=== PATIENT | male | born 1945 | race Caucasian/White ===

== ENCOUNTER → 2021-02-21 | Outpatient (CLI) | payer MEDICARE ==
[2021-02-21 07:50] LABS: Appearance,Urine Clear (Clear); Bilirubin,Urine Negative (Negative); Blood,Urine Negative (Negative); Color,Urine Yellow; Glucose,Urine (UA) Negative (Negative); HCT 47.5 % (39.0-53.0); HGB 15.8 gm/dL (13.0-17.5); Ketones,Urine Negative (Negative); Leukocyte Esterase,Urine Negative (Negative); MCH 33.1 pg (25.0-35.0); MCHC 33.4 g/dL (31.0-37.0); MCV 99.3 fL (80.0-100.0); Mean Platelet Volume 8.1; Nitrite,Urine Negative (Negative); Platelet Count 203 k/uL (150-450); Protein,Urine Negative (Negative); RBC 4.78 m/uL (4.30-5.90); RDW 12.3 % (11.5-15.5); Specific Gravity,Urine 1.012 (1.001-1.035); Urobilinogen,Urine <2.0 mg/dL (<2.0); WBC 5.5 k/uL (3.8-10.6)
[2021-02-21 07:54] LABS: INR 1.4 (<1.2); Partial Thromboplastin Time 26.8 sec (22.0-30.0); Prothrombin Time 13.9 sec (9.0-12.0)
[2021-02-21 07:57] LABS: ALT 16 U/L (4-49); AST 26 U/L (17-59); African American GFR (CKD) >90 (>60 ml/min/1.73 sqM); Albumin 4.1 g/dL (3.5-5.0); Alkaline Phosphatase 79 U/L (38-126); Anion Gap 6 mmol/L; Blood Urea Nitrogen 17 mg/dL (9-20); Calcium 9.4 mg/dL (8.4-10.2); Carbon Dioxide 28 mmol/L (22-30); Chloride 103 mmol/L (98-107); Glucose 112 mg/dL (74-99); Non-African American GFR(CKD) 87 (>60 ml/min/1.73 sqM); Potassium 4.6 mmol/L (3.5-5.1); Sodium 137 mmol/L (137-145); Total Bilirubin 0.8 mg/dL (0.2-1.3); Total Protein 7.1 g/dL (6.3-8.2)
== END | disposition home or self-care (01) ==
LOC: LABPAT 07:16
PROVIDERS: ATTEND Orthopaedic Surgery
DX: Z01.812 Encounter for preprocedural laboratory examination (principal)
CPT/HCPCS: 36415; 80053; 81003; 85027; 85610; 85730; 87070

== ENCOUNTER 2021-03-01 09:47 | Inpatient (IN) | payer MEDICARE ==
[2021-02-28 10:03] VITALS: BMI 31.6
[~2021-03-01 09:47] MED LIST: ACETAMINOPHEN TAB 500 MG TAB PO PRN; DEXAMETHASONE SOD PHOSPHATE 4 MG/ML 1 ML VIAL IV ONE; GABAPENTIN 300 MG CAP PO PRN; HYDROmorphone 0.5 MG/0.5 ML SYRINGE IVP PRN; MELOXICAM 7.5 MG TAB PO PRN; MIDAZOLAM 2 MG/2 ML VIAL IV PRN; ONDANSETRON 4 MG/2 ML VIAL IVP ONE; TRANEXAMIC ACID 1,000 MG in SODIUM CHLORIDE 0.9% 100 ML IVPB PRN
[2021-03-01] MEDS ORDERED: ceFAZolin 1,000 MG in SODIUM CHLORIDE 0.9% 1,000 ML IRRIGATION ONE (11:15)
[2021-03-01 11:16] LABS: Partial Thromboplastin Time 23.9 sec (22.0-30.0); Prothrombin Time 10.5 sec (9.0-12.0)
[2021-03-01] MEDS ORDERED: SODIUM CHLORIDE 0.9% IRRIG 1,000 ML BTL IRRIGATION ONE (11:19)
[2021-03-01] MEDS ORDERED: MIDAZOLAM 2 MG/2 ML VIAL ONE (11:19)
[2021-03-01] MEDS ORDERED: PHENYLEPHRINE-0.9% NACL SYG 1,000 MCG/10 ML SYRINGE ONE (11:19)
[2021-03-01] MEDS ORDERED: fentaNYL (PF) 50 MCG/ML 2 ML AMP ONE (11:19)
[2021-03-01] MEDS ORDERED: SODIUM CHLORIDE 0.9% 250 ML BAG ONE (11:19)
[2021-03-01] MEDS ORDERED: HYDROmorphone (PF) 1 MG/ML ONE (11:19)
[2021-03-01] MEDS ORDERED: TRANEXAMIC ACID 1,000 MG/10 ML VIAL ONE (11:19)
[2021-03-01] MEDS ORDERED: PROPOFOL 10 MG/ML 20 ML VIAL IV ONE (11:19)
[2021-03-01] MEDS ORDERED: SUCCINYLCHOLINE CHLORIDE 100 MG/5 ML SYR IV ONE (11:19)
[2021-03-01] MEDS ORDERED: HEPARIN SODIUM,PORCINE 10,000 UNIT/ML 1 ML VIAL ONE (11:19)
[2021-03-01] MEDS: ROPIVACAINE/EPI/CLONIDINE/KET 50 ML SYRINGE MISCELLANE PRN ×2 (11:47→12:30)
--- NOTE | 2021-03-01 12:44 | P.OP ---
Date of Procedure: 03/01/21 Preoperative Diagnosis: Severe osteoarthritis right hip Postoperative Diagnosis: Severe osteoarthritis right hip Procedure(s) Performed: Right total hip arthroplasty with a direct anterior approach Implants: [employer] Polarstem standard size 7 [employer] R3, 3 hole hemispherical acetabular shell, 58 mm [employer] Reflection 6.5 mm cancellus screw, 25 mm 2 [employer] R3, XLPE 20 acetabular liner [employer] Oxinium femoral head 36 m, -3 All components were press-fit. The articulation is Oxinium on polyethylene. Anesthesia: GETA Surgeon: Jorden Chaidez Pumper Gager Apprentice #1: Loree Coronel Estimated Blood Loss (ml): 100 Pathology: other (Femoral head) Condition: stable Disposition: PACU Indications for Procedure: After failure of conservative treatment we discussed the surgical and nonsurgical treatment options at length. Patient wishes to proceed with a total hip arthroplasty with a direct anterior approach. Complications specific to this procedure were discussed at length, including but not limited to infection, leg length discrepancy, dislocation, nerve injury, and fracture. Covid-19 was also discussed at length with the patient, and they are aware of the current policies and procedures. The patient was given the option of delaying surgery, but they elect to proceed knowing these risks. Patient is aware of all these complications and informed consent was obtained Operative Findings: The operative findings are consistent with severe osteoarthritis of the right hip Description of Procedure: Patient was seen and evaluated in the preoperative area and the consent was reviewed. The operative site was marked with a skin marker. The patient was then brought to the operating room and given preoperative antibiotics intravenously. 1 g of Tranexamic acid was also given intravenously. A general anesthetic was administered by the anesthesia department. The patient was then placed on the [place] table with the bony prominences well-padded. The hip area was then prepped with a ChloraPrep solution and draped in the usual sterile fashion. A universal timeout was then performed, which confirmed the patient's name, surgical site, ALLERGIES, and procedure being performed on the consent. Next the incision site was located at 1 cm distal and 2 cm lateral to the anterior superior iliac spine. The skin and subcutaneous tissues were sharply incised. Incision was carefully dissected down to the fascia overlying the tensor fascia janna muscle. This fascia was then incised in line with the incision. Care was taken to stay laterally in order to avoid injuring the lateral femoral cutaneous nerve. Next, using blunt finger dissection, the tensor fascia janna muscle was dissected off its investing fascia. The muscle was then carefully retracted laterally with a cobra retractor over the lateral neck of the femur. Next, the circumflex vessels were identified and cauterized using the AquaMantis device. The anterior hip capsule was then exposed. The capsule was then opened and an inverted T fashion. Cobra retractors were then placed intracapsularly. The retractors were maintained intracapsular throughout the procedure. The proximal femur was then visualized. A small amount of traction was placed on the leg. The femoral neck was then osteotomized appropriate level above the lesser trochanter. A small wedge of bone was then removed from the remaining femoral head. Next, using a corkscrew the femoral head was removed from the acetabulum. On gross visual inspection, the femoral head had complete loss of articular cartilage and multiple periarticular osteophytes. The femoral head was then measured. Attention was then turned to the acetabulum. The acetabulum was exposed and any remaining labrum was excised. Sequential reaming of the acetabulum was performed using fluoroscopic guidance until there was a good bed of bleeding cancellus bone. When the appropriate size was reached, a trial was then placed. The position and fit of the trial was checked with fluoroscopy. The trial was then removed. Then, using fluoroscopic guidance, the final implant was impacted at 20 of anteversion and 40 of abduction, and fully seated in the acetabulum. 2 screws were then placed in the acetabulum. Again fluoroscopy was used to check position of the screws. Next, the liner was then impacted, with a 20 elevated liner located in the anterior superior quadrant. Component locking was confirmed. Attention was then directed to the femur. With the aid of the [place] table, the femur was externally rotated to approximately 130, extended, and adducted under the opposite leg. A side hook was then placed under the proximal femur, and the side hook elevator was used to elevate the proximal femur while releasing the capsule. Retractors were then placed. A capsular release was performed, as well as a release of the conjoined tendon, which afforded excellent visualization of the proximal femur. Next, a box osteotome was used to lateralize the proximal femur. A orchid hand was then used to locate the femoral canal. Sequential broaching was then performed with appropriate size which afforded excellent fixation in the proximal femur. A trial was then placed with appropriate head and neck, and the hip was gently reduced with the aid of the [place] table. Fluoroscopy was then used to check position of the components, as well as to ensure equal leg lengths. The hip was then gently dislocated and the trials were then removed. Final implants were then impacted and the hip was again reduced. Final fluoroscopic x-rays confirmed that the components were in anatomic position, as well as equal leg lengths. The hip was also taken through range of motion, and found to be stable. The hip was then copiously irrigated with antibiotic solution with pulsatile lavage. The hip was then irrigated with Irrisept solution. The soft tissues were then injected with a ropivacaine solution, which consisted of 246.25 mg of ropivacaine, 0.5 mg of epinephrine, 30 mg of Toradol, 80 g of clonidine, and 48.45 mL of sterile water, for a total of 100 mL of fluid injected. A second dose of 1 g of Tranexamic acid was also given intravenously. Any blood collected by Cell Saver was then returned to the patient at this time. The fascia was then closed with 2-0 strata fix suture. The subcutaneous tissue was closed with 3-0 Vicryl. The subcuticular tissue was closed with 3-0 strata fix suture. The skin was then closed with Exofin skin glue. After the glue and dried, and Optifoam silver impregnated dressing was applied. The patient was then transferred to the recovery room in stable condition. The special event assistant [place] was required due to the complexity of surgery, and the need for skilled assurance assistant for positioning, draping, exposure, retraction, and closure of the wound.
[2021-03-01] MEDS ORDERED: LACTATED RINGERS 1,000 ML IV ONE (12:46)
[2021-03-01] MEDS ORDERED: MAGNESIUM HYDROXIDE 2,400 MG/10 ML CUP PO PRN (13:09)
[2021-03-01] MEDS ORDERED: HYDROmorphone 0.5 MG/0.5 ML SYRINGE IVP PRN (13:09)
[2021-03-01] MEDS ORDERED: NALOXONE 0.4 MG/ML 1 ML VIAL IV PRN (13:09)
[2021-03-01] MEDS ORDERED: ONDANSETRON 4 MG/2 ML VIAL IVP PRN (13:09)
[2021-03-01] MEDS ORDERED: HYDROmorphone 0.2 MG/1 ML SYRINGE IVP PRN (13:09)
--- NOTE | 2021-03-01 13:10 | XR ---
EXAMINATION TYPE: XR Hip Limited RT, FL guidance operating room DATE OF EXAM: 03/01/2021 Comparison: None Clinical History: 75-year-old male Rt Hip-Ant Findings: Intraoperative fluoroscopy with 2 images showing placement of right hip total arthroplasty. FLUOROSCOPY Fluoroscopy time of 24 seconds was used during anterior right hip replacement. 2 image/s document/s the procedure. Impression: Intraoperative fluoroscopy as above.
[2021-03-01] MEDS ORDERED: HYDROcodone/APAP 7.5-325MG 1 EACH TAB PO PRN (13:11)
--- NOTE | 2021-03-01 13:39 | XR ---
EXAMINATION TYPE: XR Hip Limited RT DATE OF EXAM: 03/01/2021 Comparison: None Clinical History: 75-year-old male post-op Findings: Image shows placement of right hip total arthroplasty. Both acetabular cup and femoral stem component s of the prosthesis are well seated without periprosthetic fracture. Scattered soft tissue air relate d to recent operation. Alignment grossly anatomic. Impression: Uncomplicated postoperative appearance right hip total arthroplasty.
[2021-03-01] MEDS: SODIUM CHLORIDE 0.9% 1,000 ML IV SCH (16:46)
[2021-03-01] MEDS ORDERED: WARFARIN 3 MG TAB PO ONE (18:00)
[2021-03-01] MEDS: ATORVASTATIN 10 MG TAB PO SCH (20:18)
[2021-03-01] MEDS: SENNOSIDES-DOCUSATE SODIUM 1 EACH TAB PO SCH (20:18)
[2021-03-01] MEDS: HYDROcodone/APAP 7.5-325MG 1 EACH TAB PO PRN (21:34)
--- NOTE | 2021-03-01 22:06 | XR ---
EXAMINATION TYPE: XR knee 4V RT DATE OF EXAM: 03/01/2021 COMPARISON: NONE HISTORY: Fall. Pain. TECHNIQUE: 4 views FINDINGS: There is some spurring on the anterior patella. There is spurring at the tibial tubercle. I see no fracture nor dislocation. There is no sign of a joint effusion. There is spurring at the medi al femoral and tibial condyles. There is medial joint space narrowing. IMPRESSION: Osteoarthritis. No fracture seen.
[2021-03-02] MEDS: SODIUM CHLORIDE 0.9% 1,000 ML IV SCH ×2 (03:27→17:23)
[2021-03-02] MEDS: HYDROcodone/APAP 7.5-325MG 1 EACH TAB PO PRN ×3 (06:50→23:58)
[2021-03-02] MEDS: allopurinoL 100 MG TAB PO SCH (06:51)
--- NOTE | 2021-03-02 08:05 | XR ---
Right hip Limited HISTORY: Trauma and pain Single frontal view of the right hip Correlation to prior exam 03/01/2021 Patient's right hip arthroplasty change is noted. There is a new oblique fracture through the proxima l diaphyseal right femur with a lateral displacement, bayonet apposition. No evident dislocation. IMPRESSION: Fracture as described
[2021-03-02] MEDS: LACTATED RINGERS 1,000 ML IV SCH (08:32)
[2021-03-02] MEDS ORDERED: APIXABAN 5 MG TAB PO SCH (09:00)
[2021-03-02 09:36] LABS: INR 1.01 (0.90-1.11)
[2021-03-02 10:05] LABS: Basophils # (A) 0.03 X 10*3/uL (0.00-0.10); Basophils % (A) 0.3 %; Eosinophils # (A) 0.02 X 10*3/uL (0.04-0.35); Eosinophils % (A) 0.2 %; HCT 42.8 % (39.6-50.0); HGB 13.9 g/dL (13.0-17.0); Lymphocytes # (A) 1.49 X 10*3/uL (0.90-5.00); Lymphocytes % (A) 14.6 %; MCH 31.9 pg (27.0-32.0); MCHC 32.5 g/dL (32.0-37.0); MCV 98.2 fL (80.0-97.0); Mean Platelet Volume 11.2 fL (9.5-12.2); Monocytes # (A) 1.27 X 10*3/uL (0.20-1.00); Monocytes % (A) 12.5 %; Neutrophils # (A) 7.35 X 10*3/uL (1.80-7.70); Neutrophils % (A) 72.2 %; Platelet Count 197 X 10*3/uL (140-440); RBC 4.36 X 10*6/uL (4.40-5.60); RDW 12.3 % (11.5-14.5); WBC 10.18 X 10*3/uL (4.50-10.00)
--- NOTE | 2021-03-02 11:43 | P.PN ---
Subjective Progress Note Date: 03/02/21 Principal diagnosis: Status post total right hip arthroplasty. Periprosthetic fracture right hip. Status post fall. This is a 75-year-old male who is postop day #1 status post total right hip arthroplasty. The patient had a fall last evening while getting up to the bathroom with the aid. He states that his IV tubing was caught and the patient lost contact with his walker causing him to lose balance and fall. He denies any head injury. He does complain of right hip pain. Hip x-rays were taken this morning which show an oblique periprosthetic fracture of the proximal fem ur. Patient's vital signs and labs are stable today. Objective - Vital Signs Vital signs: Vital Signs Temp 98.3 F 03/02/21 08:00 Pulse 84 03/02/21 08:00 Resp 16 03/02/21 08:00 BP 107/60 03/02/21 08:00 Pulse Ox 92 L 03/02/21 08:00 Intake & Output 03/01/21 03/02/21 03/02/21 18:59 06:59 18:59 Intake Total 1051 Output Total 100 250 Balance 951 -250 Weight 95.3 kg Intake: IV 1051 Output: Urine 250 Estimated Blood Loss 100 Other: Voiding Method Urinal Urinal # Voids 1 - Exam This is a pleasant 75-year-old male in no acute distress. He is alert and oriented 3. Exam of the right lower extremity reveals slight shortening with external rotation. His Optifoam dressing is intact. He has full foot and ankle motion without difficulty. Neurovascular status to the lower extremity is intact. - Labs CBC & Chem 7: 03/02/21 06:08 Labs: Abnormal Lab Results - Last 24 Hours (Table) 03/02/21 Range/Units 06:08 WBC 10.18 H (4.50-10.00) X 10*3/uL RBC 4.36 L (4.40-5.60) X 10*6/uL MCV 98.2 H (80.0-97.0) fL Monocytes # 1.27 H (0.20-1.00) X 10*3/uL Eosinophils # 0.02 L (0.04-0.35) X 10*3/uL Assessment and Plan (1) Primary localized osteoarthritis of right hip Current Visit: Yes Status: Acute Code(s): M16.11 - UNILATERAL PRIMARY OSTEOARTHRITIS, RIGHT HIP SNOMED Code(s): 659968587409102 (2) Status post total hip replacement, right Current Visit: Yes Status: Acute Code(s): Z96.641 - PRESENCE OF RIGHT ARTIFICIAL HIP JOINT SNOMED Code(s): 368840111588 (3) Periprosthetic fracture around internal prosthetic right hip joint Current Visit: Yes Status: Acute Code(s): M97.01XA - PERIPROSTH FRACTURE AROUND INTERNAL PROSTH R HIP JT, INIT SNOMED Code(s): 462244493 Plan: The clinical and x-ray findings are discussed with the patient. It is recommended he be taken to surgery today for open reduction showed fixation versus revision total hip arthroplasty. The procedures discussed in detail including the possible risks and outcomes of surgery. We're planning OR for later this afternoon.
--- NOTE | 2021-03-02 12:45 | P.CONS ---
History of Present Illness - Reason for Consult Consult date: 03/02/21 - Chief Complaint Medical management - History of Present Illness History of present illness 75 years old male with past medical history of pulmonary embolism in 2015 unknown cause takes Coumadin, history of obstructive sleep apnea on CPAP, hyperlipidemia, history of basal cell cancer who was admitted for elective repair of the right hip status post total right hip arthroplasty on 03/01. Patient was doing well until yesterday when he was using his walker to use the bathroom. Patient IV line got caught in his bed for which he looked back, in the process of which patient's leg buckled and he fell on his right knee. He was decided to the floor by the aide walking with the patient. X-ray of the knee and hip was done that suggested oblique periprosthetic fracture of the proximal femur. Patient's vitals were reviewed patient and is 98.4 pulse 84 respiratory rate 16 blood pressure 107/60. To rule out acute blood loss due to obesity was noted to be 10.1 and 8 hemoglobin 13.9 platelet 197. Patient received a dose of Coumadin last night. Patient is planned to go for surgery by evening. Patient has minimal mobility involving his hip and knee. He is able to freely move his ankle He does have difficulty He is to well he denies any chest pain or shortness of breath denies any abdominal pain. He does have constipation but denies any black stool or melena. He denies any dizziness or lightheadedness. ROS Constitutional: Denies chills, Denies fever, Denies lethargy, Denies malaise, Denies poor appetite, Denies weakness, Denies weight loss Eyes: denies decreased vision, denies diplopia, denies discharge, denies pain Ears: deny: decreased hearing Ears, nose, mouth and throat: Denies dental pain, Denies headache, Denies nasal discharge, Denies nose pain Cardiovascular: Denies chest pain, Denies decreased exercise tolerance, Denies edema, Denies high blood pressure, Denies irregular heart beat, Denies palpitations, Denies paroxysmal nocturnal dyspnea, Denies rapid heart beat, Denies shortness of breath Respiratory: Denies congestion, Denies cough, Denies cough with sputum, Denies dyspnea, Denies home oxygen, Denies wheezing Gastrointestinal: Denies abdominal pain, Denies change in bowel habits, Denies coffee ground emesis, Denies early satiety, Denies excessive gas, Denies heartburn, Denies hematemesis, Denies hematochezia, Denies loss of appetite, Den ies nausea, Denies vomiting Genitourinary: Denies dysuria, Denies flank pain, Denies kidney stones, Denies menorrhagia, Denies urgency, Denies urinary frequency Musculoskeletal: Endorses gait dysfunction, Denies limitation of motion, Denies morning stiffness, Denies muscle cramps endorses pain in his hip Integumentary: Denies rash, Denies wounds, Denies brittle nails, Denies change in hair/nails, Denies darkening of skin Neurological: Denies balance difficulties, Denies change in speech, Denies double vision, Denies gait dysfunction, Denies loss of vision, Denies motor disturbance, Denies numbness, Denies paralysis, Denies paresthesias, Denies seizures Psychiatric: Denies anxiety, Denies depression Endocrine: Denies excessive sweating, Denies excessive thirst, Denies high blood sugars, Denies palpitations Hematologic/Lymphatic: Denies easy bruising, Denies lymphadenopathy Social history Patient is a non-smoker Drinks alcohol occasionally denies any melena or any drug use lives with his denies any use of oxygen walker Family history Mom at the age of 86 had various medical reasons Father at the age of 84 from coronary artery disease Patient has 1 brother is living is a 79 years old has history of basal cell cancer One sister who is 76 doing well One sister passed from infection. At the age of 53 Patient has 3 daughters doing well Physical exam - Constitutional General appearance: cooperative, no acute distress, obese - EENT Eyes: anicteric sclerae, PERRLA, normal appearance ENT: hearing grossly normal - Neck Neck: no lymphadenopathy, normal ROM, no other, no rigidity, no stridor, no thyromegaly - Respiratory Respiratory: bilateral: CTA, negative: diminished, dullness, rales, rhonchi - Cardiovascular Rhythm: regular Heart sounds: normal: S1, S2 Abnormal Heart Sounds: no systolic murmur, no diastolic murmur, no rub, no S3 Gallop, no S4 Gallop, no click, no other - Gastrointestinal General gastrointestinal: normal bowel sounds, soft - Integumentary Integumentary: no rash - Neurologic Neurologic: CNII-XII intact - Musculoskeletal Musculoskeletal: Right leg is externally rotated with minimal swelling involving the thigh and the hip region. Dressing in place has minimal wheezing. Peripheral pulses are intact. Neurovascular is intact - Psychiatric Psychiatric: A&O x's 3, appropriate affect Assessment and plan #1 postoperative day 1 right total hip arthroplasty. Pain control per primary team. Incentive spirometry for pulmonary prophylaxis. Eliquis postop for DVT prophylaxis #2 periprosthetic fracture around it to prostatic right hip joint patient is planned for surgery for open reduction versus revision of the total hip arthroplasty this evening #3 pulmonary embolism on Coumadin. The plan is to switch to Eliquis for better coagulation. No recurrent episode. Unknown etiology #4 hyperlipidemia continue simvastatin 20 mg daily at bedtime #5 gout continue Zyloprim 100 mg by mouth daily #6: Code Status full code #7 DVT prophylaxis with Eliquis #8 GI prophylaxis with Pepcid 20 mg daily thank you for the consult. I'll be happy to assist in patient's medical needs as patient is here in the hospital Past Medical History Past Medical History: Hyperlipidemia, Pulmonary Embolus (PE), Sleep Apnea/CPAP/BIPAP Additional Past Medical History / Comment(s): uses cpap, PEs 2014 History of Any Multi-Drug Resistant Organisms: None Reported Past Surgical History: No Surgical Hx Reported Past Anesthesia/Blood Transfusion Reactions: No Reported Reaction Past Psychological History: No Psychological Hx Reported Smoking Status: Former smoker Past Alcohol Use History: Occasional Past Drug Use History: None Reported - Past Family History Mother Family Medical History: No Reported History Father Family Medical History: Coronary Artery Disease (CAD) Medications and Allergies Home Medications Medication Instructions Recorded Confirmed Type Allopurinol [Zyloprim] 100 mg PO DAILY 02/28/21 02/28/21 History Apixaban [Eliquis] 5 mg PO BID 02/28/21 02/28/21 History Celecoxib [CeleBREX] 200 mg PO DAILY 02/28/21 02/28/21 History Joint Health Supplement 1 tab PO DAILY 02/28/21 02/28/21 History Simvastatin [Zocor] 20 mg PO HS 02/28/21 02/28/21 History Warfarin [Coumadin] 3 mg PO MOWEFRSA 02/28/21 02/28/21 History Warfarin [Coumadin] 6 mg PO SUTUTH 02/28/21 02/28/21 History HYDROcodone/APAP 7.5-325MG [[place] 1 - 2 tab PO Q6H PRN #32 tab 03/01/21 Rx 7.5-325] Sennosides [Senokot] 2 tab PO DAILY PRN #60 tablet 03/01/21 Rx Allergies Allergy/AdvReac Type Severity Reaction Status Date / Time No Known Allergies Allergy Verified 03/01/21 10:06 Physical Exam Vitals: Vital Signs Temp Pulse Pulse Resp BP Pulse Ox 03/02/21 08:00 98.3 F 84 16 107/60 92 L 03/02/21 01:50 97.9 F 75 125/67 93 L 03/01/21 21:12 97.6 F 59 L 18 149/75 99 03/01/21 19:27 97.5 F L 66 18 120/67 94 L 03/01/21 16:16 98.1 F 83 18 147/89 99 03/01/21 15:45 78 16 133/73 99 03/01/21 15:15 79 16 125/74 98 03/01/21 14:45 78 15 138/80 99 03/01/21 14:15 80 16 141/75 98 03/01/21 14:00 80 16 142/87 98 03/01/21 13:45 81 16 146/78 95 03/01/21 13:30 82 16 142/66 99 03/01/21 13:15 96.8 F L 81 20 133/86 93 L Intake and Output 03/01/21 03/02/21 03/02/21 22:59 06:59 14:59 Output Total 250 Balance -250 Output: Urine 250 Other: Voiding Method Urinal Urinal # Voids 1 Weight 95.3 kg Results CBC & Chem 7: 03/02/21 06:08 Labs: Abnormal Lab Results - Last 24 Hours (Table) 03/02/21 Range/Units 06:08 WBC 10.18 H (4.50-10.00) X 10*3/uL RBC 4.36 L (4.40-5.60) X 10*6/uL MCV 98.2 H (80.0-97.0) fL Monocytes # 1.27 H (0.20-1.00) X 10*3/uL Eosinophils # 0.02 L (0.04-0.35) X 10*3/uL
[2021-03-02] MEDS: HYDROmorphone 0.5 MG/0.5 ML SYRINGE IVP PRN ×2 (13:18→19:50)
[2021-03-02] MEDS: SENNOSIDES-DOCUSATE SODIUM 1 EACH TAB PO SCH (19:51)
[2021-03-02] MEDS: ATORVASTATIN 10 MG TAB PO SCH (19:51)
[2021-03-03] MEDS: LACTATED RINGERS 1,000 ML IV SCH ×2 (07:33→14:18)
[2021-03-03] MEDS: FAMOTIDINE 20 MG TAB PO SCH (07:35)
[2021-03-03] MEDS: allopurinoL 100 MG TAB PO SCH (07:35)
[2021-03-03] MEDS: HYDROcodone/APAP 7.5-325MG 1 EACH TAB PO PRN (07:35)
[2021-03-03] MEDS: SODIUM CHLORIDE 0.9% 1,000 ML IV SCH ×2 (07:37→19:44)
[2021-03-03 08:16] LABS: INR 1.1 (<1.2); Prothrombin Time 11.7 sec (9.0-12.0)
[2021-03-03] MEDS ORDERED: APIXABAN 5 MG TAB PO SCH (09:15)
[2021-03-03 11:25] LABS: HCT 39.3 % (39.6-50.0); HGB 13.2 g/dL (13.0-17.0); MCH 33.2 pg (27.0-32.0); MCHC 33.6 g/dL (32.0-37.0); MCV 98.7 fL (80.0-97.0); Mean Platelet Volume 11.3 fL (9.5-12.2); Platelet Count 166 X 10*3/uL (140-440); RBC 3.98 X 10*6/uL (4.40-5.60); RDW 12.3 % (11.5-14.5); WBC 10.54 X 10*3/uL (4.50-10.00)
--- NOTE | 2021-03-03 12:18 | P.PN ---
Subjective Progress Note Date: 03/03/21 [facility] is covering [facility] (Dr. Pardo, Dr. Wood, and Dr. Avery) on 03/03 and 03/04 please contact us on perfect serve with any questions, needs, or concerns. Patient is a [address] Avery with a history of pulmonary embolism was being treated with Coumadin the plan to transition to Eliquis, obstructive sleep apnea with CPAP use, dyslipidemia, and prior basal cell cancer who was initially admitted for elective right total hip arthroplasty on 03/01. Unfortunately he was up and using his walker when the IV line got caught in his leg buckled and he fell on his right knee. He suffered a periprosthetic fracture. Patient seen and examined at bedside. He states that pain is well controlled. Denies any nausea, vomiting, diarrhea, or constipation. No chest pain or shortness of breath. General: non toxic, no distress, appears younger than stated age Derm: warm, dry, dressing in place over right hip Head: atraumatic, normocephalic, symmetric Eyes: EOMI, no lid lag, anicteric sclera Mouth: no lip lesion, mucus membranes moist Cardiovascular: S1S2 reg, no murmur, positive posterior tibial pulse bilateral, Lungs: Decreased bs bilateral, no rhonchi, no rales , no accessory muscle use Abdominal: soft, nontender to palpation, no guarding, no appreciable organomegaly Ext: no gross muscle atrophy, no edema, no contractures Neuro: CN II-XI grossly intact, no focal neuro deficits Psych: Alert, oriented, appropriate affect Assessment/plan Patient is a 75-year-old male status post right total hip arthroplasty with per iprosthetic fracture after fall -Plan is for repeat surgery today -We'll hold Eliquis at this time Dyslipidemia - zocor Gout - allopurinol History of pulmonary embolism was treated with Coumadin prior -Plan per primary care team was to switch patient to Eliquis after surgery for easier anticoagulation. Thank you for allowing us to participate in the care of this pleasant patient. Do not hesitate to contact us with questions. Someone can be reached from the [facility] hospitalist group all hours of the day at [phone] or via perfect serve. Objective - Vital Signs Vital signs: Vital Signs Temp 98.6 F 03/03/21 08:00 Pulse 93 03/03/21 08:00 Resp 16 03/03/21 08:00 BP 152/73 03/03/21 08:00 Pulse Ox 95 03/03/21 08:00 Intake & Output 03/02/21 03/03/21 03/03/21 18:59 06:59 18:59 Output Total 1350 Balance -1350 Output: Urine 1350 Other: Voiding Method Urinal Urinal - Labs CBC & Chem 7: 03/03/21 07:32 Labs: Abnormal Lab Results - Last 24 Hours (Table) 03/03/21 Range/Units 07:32 WBC 10.54 H (4.50-10.00) X 10*3/uL RBC 3.98 L (4.40-5.60) X 10*6/uL Hct 39.3 L (39.6-50.0) % MCV 98.7 H (80.0-97.0) fL MCH 33.2 H (27.0-32.0) pg
[2021-03-03 13:16] LABS: African American GFR (CKD) 99.9 (60.0-200.0); Albumin 3.3 g/dL (3.8-4.9); Albumin/Globulin Ratio 1.5 (1.60-3.17); Anion Gap 10.7 mmol/L (4.00-12.00); BUN/Creat Ratio 13.38 Ratio (12.00-20.00); Blood Urea Nitrogen 10.7 mg/dL (9.0-27.0); Calcium 8.3 mg/dL (8.7-10.3); Carbon Dioxide 23.3 mmol/L (21.6-31.8); Globulin 2.2 g/dL (1.6-3.3); Non-African American GFR(CKD) 86.2 (60.0-200.0); Potassium 4.1 mmol/L (3.5-5.5); Total Bilirubin 1.1 mg/dL (0.30-1.20); Total Protein 5.5 g/dL (6.2-8.2)
[2021-03-03] MEDS: HYDROmorphone 0.5 MG/0.5 ML SYRINGE IVP PRN ×2 (13:26→23:15)
[2021-03-03] MEDS ORDERED: fentaNYL (PF) 50 MCG/ML 2 ML AMP ONE (15:46)
[2021-03-03] MEDS ORDERED: ROCURONIUM 10 MG/ML (5 ML VIAL) IV ONE (15:46)
[2021-03-03] MEDS ORDERED: LIDOCAINE 1% INJ 10MG/ML (20 ML MDV) ONE (15:46)
[2021-03-03] MEDS ORDERED: HYDROmorphone (PF) 1 MG/ML ONE (15:46)
[2021-03-03] MEDS ORDERED: SUCCINYLCHOLINE CHLORIDE 100 MG/5 ML SYR IV ONE (15:46)
[2021-03-03] MEDS ORDERED: NEOSTIGMINE 1 MG/ML 10 ML VIAL ONE (15:46)
[2021-03-03] MEDS ORDERED: GLYCOPYRROLATE 0.2 MG/ML 2 ML VIAL ONE (15:46)
[2021-03-03] MEDS ORDERED: PROPOFOL 10 MG/ML 20 ML VIAL IV ONE (15:46)
[2021-03-03] MEDS ORDERED: SODIUM CHLORIDE 0.9% 100 ML with ceFAZolin 2,000 MG IV ONE ×2 (16:05)
[2021-03-03] MEDS ORDERED: ceFAZolin 3,000 MG in SODIUM CHLORIDE 0.9% IRRIGATIO 3,000 ML IRRIGATION ONE (16:15)
--- NOTE | 2021-03-03 17:32 | P.OP ---
Date of Procedure: 03/03/21 Preoperative Diagnosis: Periprosthetic fracture right femur Postoperative Diagnosis: Periprosthetic fracture right femur Procedure(s) Performed: Open reduction and internal fixation periprosthetic fracture right femur Implants: [employer] Accord 2.0 mm cable 6 Anesthesia: GETA Surgeon: Jorden Chaidez [employer] Project Manager #1: Loree Coronel Estimated Blood Loss (ml): 600 Pathology: none sent Condition: stable Disposition: PACU Indications for Procedure: This is a 75-year-old gentleman that had a right total hip arthroplasty performed on 03/01/2021. On his first postoperative night he was in the hospital when he abruptly pivoted on his operative leg and felt immediate pain and inability to bear weight. Patient had an x-ray performed which showed a periprosthetic fracture of his femur around his total hip arthroplasty. After discussing the surgical nonsurgical treatment options with him at length I've recommended open reduction and internal fixation with cerclage wiring of his periprosthetic fracture with possible revision of his femoral stem. Informed consent was obtained. Operative Findings: The operative findings are consistent with a periprosthetic fracture of his right femur. His femoral stem component was found to be well fixed and was left in place. Description of Procedure: Patient was seen and evaluated in the preoperative area and the consent was reviewed. The operative site was marked with a skin marker. The patient was then brought to the operating room and given preoperative antibiotics intravenously. A general anesthetic was administered by the anesthesia department. The patient was then placed on the [place] table with the bony prominences well-padded. The hip area was then prepped with a ChloraPrep solution and draped in the usual sterile fashion. A universal timeout was then performed, which confirmed the patient's name, surgical site, ALLERGIES, and procedure being performed on the consent. Next the incision site was located on the lateral aspect of his leg centered over the fracture site. Incision was carefully dissected down to the fascia overlying the tensor fascia janna muscle. This fascia was then incised in line with the incision. Next, the vastus lateralis was elevated and the femoral fracture was visualized. The fracture was found to be a long oblique fracture with just 2 components. Some traction and rotation was placed on the leg and using 2 plane bone clamps, the fracture was readily reduced. This was confirmed with fluoroscopy. Next using cerclage wires, 6 cables were placed both proximally and distally to the fracture site which afforded excellent fixation of the fracture. Fluoroscopic x-rays confirmed reduction of the fracture. The femoral stem was then also evaluated under fluoroscopy and found to be stable. There area was then irrigated with antibiotic solution. Fascia was closed with #1 Vicryl followed by #2 strata fix suture. The subcutaneous tissue was closed with 3-0 Vicryl. The subcuticular tissue was closed with 3-0 strata fix suture. The skin was then closed with luiz. After the glue and dried, and Optifoam silver impregnated dressing was applied. The patient was then transferred to the recovery room in stable condition. The assistant teacher primary [place] was required due to the complexity of surgery, and the need for skilled rn surgical pcu for positioning, draping, exposure, retraction, and closure of the wound.
[2021-03-03] MEDS ORDERED: NALOXONE 0.4 MG/ML 1 ML VIAL IV PRN (17:47)
[2021-03-03] MEDS ORDERED: ONDANSETRON 4 MG/2 ML VIAL IVP PRN (17:47)
[2021-03-03] MEDS ORDERED: HYDROmorphone 0.5 MG/0.5 ML SYRINGE IVP ONE ×2 (18:09)
--- NOTE | 2021-03-03 18:23 | XR ---
PROCEDURE: XR Hip Limited RT - 1V DATE AND TIME: 03/03/2021 6:12 PM CLINICAL INDICATION: Status post hip surgery, assess surgical alignment TECHNIQUE: Department protocol COMPARISON: 03/02/2021 FINDINGS: Interval placement of 6 proximal femur transversely-placed orthopedic fixation wires. On th is single AP view there is re-established anatomic positioning. No unexpected findings. IMPRESSION: Postoperative single AP portable view.
[2021-03-03] MEDS ORDERED: SODIUM CHLORIDE 0.9% 1,000 ML IV ONE (18:31)
[2021-03-03] MEDS: ATORVASTATIN 10 MG TAB PO SCH (19:41)
[2021-03-03] MEDS: SENNOSIDES-DOCUSATE SODIUM 1 EACH TAB PO SCH (19:41)
--- NOTE | 2021-03-03 21:38 | FL ---
EXAMINATION TYPE: FL guidance operating room, XR femur RT DATE OF EXAM: 03/03/2021 CLINICAL HISTORY: Right femur fracture. TECHNIQUE: Fluoroscopy. 2 views right femur. COMPARISON: Right hip x-ray from yesterday.. FINDINGS: Fluoroscopic guidance was provided during open reduction and internal fixation procedure p erformed by Dr. Chaidez. A total of 23 seconds of fluoroscopic time was utilized during the procedu re and 2 spot images was acquired. 2 spot intraoperative images obtained show placement of 6 cerclage wires through the distal oblique f racture past the metallic prosthesis with improved alignment after reduction and wire placement. IMPRESSION: As Above.
[2021-03-04] MEDS: HYDROcodone/APAP 7.5-325MG 1 EACH TAB PO PRN (02:00)
[2021-03-04] MEDS: SODIUM CHLORIDE 0.9% 1,000 ML IV SCH ×3 (02:12→10:19)
[2021-03-04] MEDS: HYDROmorphone 0.5 MG/0.5 ML SYRINGE IVP PRN (04:49)
[2021-03-04 08:55] VITALS: BP 112/72; PULSE 91; RESP 16; TEMP 98.2
[2021-03-04] MEDS ORDERED: polyethylene glycoL 3350 17 GM POWD.PACK PO STA (09:11)
[2021-03-04] MEDS: LACTATED RINGERS 1,000 ML IV SCH (10:14)
--- NOTE | 2021-03-04 10:15 | XR ---
EXAMINATION TYPE: XR chest 1V portable DATE OF EXAM: 03/04/2021 Comparison: None Clinical History: 75 year-old male cough, pneumonia Findings: The heart is upper limits of normal in size. Some strandy atelectasis in the lower lungs. Patient is obliquely towards the right. There is some patchy density in the periphery of the right mid and lower lung. No pleural effusion. Impression: Some patchy density in the periphery of the right mid and lower lung could represent atelectasis or d eveloping infiltrate/pneumonia. Follow-up can be considered.
--- NOTE | 2021-03-04 10:18 | P.PN ---
Subjective Progress Note Date: 03/04/21 [facility] is covering [facility] (Dr. Pardo, Dr. Wood, and Dr. Avery) on 03/03 and 03/04 please contact us on perfect serve with any questions, needs, or concerns. Patient is a [address] Avery with a history of pulmonary embolism was being treated with Coumadin the plan to transition to Eliquis, obstructive sleep apnea with CPAP use, dyslipidemia, and prior basal cell cancer who was initially admitted for elective right total hip arthroplasty on 03/01. Unfortunately he was up and using his walker when the IV line got caught in his leg buckled and he fell on his right knee. He suffered a periprosthetic fracture, and he went for operative repair on 03/03. Patient seen and examined at bedside. WAling is difficult, He is aware that he will need to go to rehab. Still not BM, no chest pain, no shortness of breath, eating and drinking well. present at bedside and updated on plan for SNF and all questions answered. General: non toxic, no distress, appears younger than stated age, was walking with therapy when I entered the room. Derm: warm, dry Head: atraumatic, normocephalic, symmetric Eyes: EOMI, no lid lag, anicteric sclera Mouth: no lip lesion, mucus membranes moist Cardiovascular: S1S2 reg, no murmur, positive posterior tibial pulse bilateral, Lungs: Decreased bs bilateral, no rhonchi, no rales , no accessory muscle use Abdominal: soft, nontender to palpation, no guarding, no appreciable organomega ly Ext: no gross muscle atrophy, no edema, no contractures Neuro: CN II-XI grossly intact, no focal neuro deficits Psych: Alert, oriented, appropriate affect Assessment/plan Patient is a 75-year-old male status post right total hip arthroplasty with periprosthetic fracture after fall -Plan is for repeat surgery today - Eliquis when okay with ortho Dyslipidemia - zocor Gout - allopurinol History of pulmonary embolism was treated with Coumadin prior -Plan per primary care team was to switch patient to Eliquis after surgery for easier anticoagulation, message sent to ortho to ensure that they are okay wtih start eliquis today. Fevers X1 - CXR with no acute process as reviewed by myself. - encourage Incentive spirometer Morning labs pending at the time of this note, will follow. If Labs stable will be medically optimized for discharge to rehab. Thank you for allowing us to participate in the care of this pleasant patient. Do not hesitate to contact us with questions. Someone can be reached from the [facility] hospitalist group all hours of the day at [phone] or via perfect serve. Objective - Vital Signs Vital signs: Vital Signs Temp 98.2 F 03/04/21 08:00 Pulse 91 03/04/21 08:00 Resp 16 03/04/21 08:00 BP 112/72 03/04/21 08:00 Pulse Ox 97 03/04/21 08:00 Intake & Output 03/03/21 03/04/21 03/04/21 18:59 06:59 18:59 Intake Total 1101 Output Total 600 700 Balance 501 -700 Intake: IV 1101 Output: Urine 700 Straight 700 Estimated Blood Loss 600 Other: Voiding Method Urinal - Labs CBC & Chem 7: 03/03/21 07:32 03/03/21 07:32 Labs: Abnormal Lab Results - Last 24 Hours (Table) 03/03/21 03/03/21 Range/Units 07:32 07:32 WBC 10.54 H (4.50-10.00) X 10*3/uL RBC 3.98 L (4.40-5.60) X 10*6/uL Hct 39.3 L (39.6-50.0) % MCV 98.7 H (80.0-97.0) fL MCH 33.2 H (27.0-32.0) pg Calcium 8.3 L (8.7-10.3) mg/dL AST 49 H (14-35) U/L Total Protein 5.5 L (6.2-8.2) g/dL Albumin 3.3 L (3.8-4.9) g/dL Albumin/Globulin Ratio 1.50 L (1.60-3.17) g/dL
[2021-03-04] MEDS: FAMOTIDINE 20 MG TAB PO SCH (10:19)
[2021-03-04] MEDS: allopurinoL 100 MG TAB PO SCH (10:19)
[2021-03-04] MEDS ORDERED: APIXABAN 5 MG TAB PO SCH (10:30)
[2021-03-04 10:42] LABS: HCT 33.8 % (39.6-50.0); MCH 31.8 pg (27.0-32.0); MCHC 32.5 g/dL (32.0-37.0); MCV 97.7 fL (80.0-97.0); Mean Platelet Volume 11.4 fL (9.5-12.2); Platelet Count 164 X 10*3/uL (140-440); RBC 3.46 X 10*6/uL (4.40-5.60); RDW 12.3 % (11.5-14.5); WBC 9.52 X 10*3/uL (4.50-10.00)
[2021-03-04 10:49] LABS: INR 1.05 (0.90-1.11); Prothrombin Time 11.5 sec (9.9-11.9)
--- NOTE | 2021-03-04 12:43 | P.DS ---
Providers Date of admission: 03/02/21 12:45 Expected date of discharge: 03/04/21 Attending physician: Jorden Chaidez Consults: 03/01/21 13:09 Consult Physician Routine Consulting Provider: Waldo Avery Reason/Comments: medical management and anticoagulation Do you want consulting provider notified?: Yes Primary care physician: Waldo Avery - Discharge Diagnosis(es) (1) Fall Current Visit: Yes Status: Acute (2) Periprosthetic fracture around internal prosthetic right hip joint Current Visit: Yes Status: Acute (3) Primary localized osteoarthritis of right hip Current Visit: Yes Status: Acute (4) Status post total hip replacement, right Current Visit: Yes Status: Acute Hospital Course: This is a 75-year-old male with known history of degenerative arthritis of the right hip. The patient presented for evaluation of an outpatient. After discussion and consideration patient elected to proceed with total hip arthroplasty. The patient is seen preoperatively by Dr. Chaidez and cleared for surgery. Patient is admitted to [facility] on 03/01/2021 for total hip arthropla sty. The procedures performed without complication or sequelae. However, the patient had a fall during his admission and x-rays revealed a periprosthetic fracture of the right femur. Open reduction and internal fixation of periprosthetic fracture of the right femur was performed on 03/03/[address] Jorden Chaidez. The patient is doing well postoperatively. Labs and vital signs are stable on day of discharge. On day of discharge patient's hip incision is healing well. There is minimal erythema. There is no drainage noted at this time. There is minimal soft tissue swelling to the hip and thigh. Patient has full foot and ankle motion without difficulty or pain. Neurovascular status to the right lower extremity is intact. Opioid start talking form is discussed and signed. Patient is discharged to rehab in good condition. Please see med rec for accurate list of home medications. Plan - Discharge Summary Discharge Rx Participant: No New Discharge Prescriptions: New Famotidine [Pepcid] 20 mg PO DAILY tab HYDROcodone/APAP 7.5-325MG [[place] 7.5-325] 1 - 2 tab PO Q6H PRN #32 tab PRN Reason: Pain Sennosides [Senokot] 2 tab PO DAILY PRN #60 tablet PRN Reason: Constipation Continue Apixaban [Eliquis] 5 mg PO BID Simvastatin [Zocor] 20 mg PO HS Allopurinol [Zyloprim] 100 mg PO DAILY Joint Health Supplement 1 tab PO DAILY Discontinued Warfarin [Coumadin] 6 mg PO SUTUTH Warfarin [Coumadin] 3 mg PO MOWEFRSA No Action Celecoxib [CeleBREX] 200 mg PO DAILY Discharge Medication List Allopurinol [Zyloprim] 100 mg PO DAILY 02/28/21 [History] Apixaban [Eliquis] 5 mg PO BID 02/28/21 [History] Celecoxib [CeleBREX] 200 mg PO DAILY 02/28/21 [History] Joint Health Supplement 1 tab PO DAILY 02/28/21 [History] Simvastatin [Zocor] 20 mg PO HS 02/28/21 [History] Famotidine [Pepcid] 20 mg PO DAILY tab 03/04/21 [Rx] HYDROcodone/APAP 7.5-325MG [[place] 7.5-325] 1 - 2 tab PO Q6H PRN #32 tab 03/04/21 [Rx] Sennosides [Senokot] 2 tab PO DAILY PRN #60 tablet 03/04/21 [Rx] Follow up Appointment(s)/Referral(s): Adina Ahuja, [NON-STAFF] - As Needed [facility], [NON-STAFF] - As Needed Jorden Chaidez DO [Doctor of Osteopathic Medicine] - 2 Weeks Activity/Diet/Wound Care/Special Instructions: Diet: heart healthy Special Instructions: Weightbearing as tolerated with walker. Leave dressing intact. Dressing may be removed by home care nurse or by patient in 7 days. Then change dressing twice daily until follow up. May shower with initial dressing intact and after removal. If dressing become saturated, please remove. Anticoagulation per internal medicine. Recommend use of compression stockings daily until follow up to help prevent swelling and blood clots. May remove at night before sleeping. Please follow[facility] with [facility] in 2 weeks and call with any questions or concerns, . CBC in 3-4 days DX: Anemia Continue with Incentive Spirometery 10X per hour while awake. Discharge Disposition: TRANSFER TO SNF/ECF
[2021-03-04 14:49] LABS: Basophils # (A) 0.03 X 10*3/uL (0.00-0.10); Basophils % (A) 0.3 %; Eosinophils # (A) 0 X 10*3/uL (0.04-0.35); Eosinophils % (A) 0 %; Lymphocytes % (A) 7.4 %; Monocytes # (A) 1.16 X 10*3/uL (0.20-1.00); Monocytes % (A) 12.2 %; Neutrophils % (A) 79.8 %
== END 2021-03-04 14:07 | DRG 469 ==
LOC: OR 09:47 → 4SSUR 12:59 → OR 03-02 12:45
PROVIDERS: ADMIT Orthopaedic Surgery; ATTEND Orthopaedic Surgery
PROC: 0SR902A Replacement of Right Hip Joint with Metal on Polyethylene Synthetic Substitute, Uncemented, Open Approach (ICD-10-PCS; principal; 2021-03-01 11:15)
PROC: 0QS404Z Reposition Right Acetabulum with Internal Fixation Device, Open Approach (ICD-10-PCS; 2021-03-03)
DX: M16.11 Unilateral primary osteoarthritis, right hip (principal); I26.99 Other pulmonary embolism without acute cor pulmonale; M97.01XA Periprosthetic fracture around internal prosthetic right hip joint, initial encounter; T84.010A Broken internal right hip prosthesis, initial encounter; Z20.822 Contact with and (suspected) exposure to COVID-19; E78.5 Hyperlipidemia, unspecified; K59.00 Constipation, unspecified; M10.9 Gout, unspecified; G47.33 Obstructive sleep apnea (adult) (pediatric); R33.9 Retention of urine, unspecified; W19.XXXA Unspecified fall, initial encounter; Z79.01 Long term (current) use of anticoagulants; Z79.1 Long term (current) use of non-steroidal anti-inflammatories (NSAID); Z87.891 Personal history of nicotine dependence; Z86.711 Personal history of pulmonary embolism; Z85.828 Personal history of other malignant neoplasm of skin; Z82.49 Family history of ischemic heart disease and other diseases of the circulatory system; Z79.899 Other long term (current) drug therapy
CPT/HCPCS: 71045; 73501; 80053; 85025; 85027; 85610; 85730; 86850; 86891; 86900; 86901; 87635; 88300

== ENCOUNTER 2021-05-02 14:27 | Inpatient (IN) | payer MEDICARE ==
--- NOTE | 2021-05-02 14:56 | P.HPOR ---
History of Present Illness H&P Date: 05/02/21 This is a 75 year-old male who is admitted for periprosthetic fracture of the right hip. Patient presented in the office today as an outpatient with complaints of limited motion of the right hip and difficulty weightbearing on his right leg. Patient states that this started over the weekend after physical therapy. Patient denies any repeat fall or known injury. Patient is status post left total hip arthroplasty on 03/01/2021. Patient's history is that he fell while in the hospital after his hip replacement and underwent open reduction internal fixation of the right hip on 03/03/2021. X-rays taken in the office today as an outpatient reveal fracture of the right femur and previous ORIF. Patient denies any fever/chills, numbness, weakness or tingling. Review of Systems See HPI. Past Medical History Past Medical History: Hyperlipidemia, Pulmonary Embolus (PE), Sleep Apnea/CPAP/BIPAP Additional Past Medical History / Comment(s): uses cpap, PEs 2014 History of Any Multi-Drug Resistant Organisms: None Reported Past Surgical History: No Surgical Hx Reported Past Anesthesia/Blood Transfusion Reactions: No Reported Reaction Past Psychological History: No Psychological Hx Reported Smoking Status: Former smoker Past Alcohol Use History: Occasional Past Drug Use History: None Reported - Past Family History Mother Family Medical History: No Reported History Father Family Medical History: Coronary Artery Disease (CAD) Medications and Allergies Home Medications Medication Instructions Recorded Confirmed Type Allopurinol [Zyloprim] 100 mg PO DAILY 02/28/21 02/28/21 History Apixaban [Eliquis] 5 mg PO BID 02/28/21 02/28/21 History Celecoxib [CeleBREX] 200 mg PO DAILY 02/28/21 02/28/21 History Joint Health Supplement 1 tab PO DAILY 02/28/21 02/28/21 History Simvastatin [Zocor] 20 mg PO HS 02/28/21 02/28/21 History Famotidine [Pepcid] 20 mg PO DAILY tab 03/04/21 Rx HYDROcodone/APAP 7.5-325MG [[place] 1 - 2 tab PO Q6H PRN #32 tab 03/04/21 Rx 7.5-325] Sennosides [Senokot] 2 tab PO DAILY PRN #60 tablet 03/04/21 Rx Tamsulosin [Flomax] 0.4 mg PO DAILY #30 cap 03/04/21 Rx Allergies Allergy/AdvReac Type Severity Reaction Status Date / Time No Known Allergies Allergy Verified 03/01/21 10:06 Physical Examination On exam incisions are healing well. Patient has limitation with hip motion along with pain. There is mild swelling present. Calf is soft and nontender to palpation. Sensation intact. Neurovascular status and circulatory status are intact. Exams of the head, neck, bilateral upper extremities and left lower extremity are within normal limits. Assessment and Plan (1) History of total right hip arthroplasty Status: Acute Code(s): Z96.641 - PRESENCE OF RIGHT ARTIFICIAL HIP JOINT SNOMED Code(s): 758474873409 (2) History of open reduction and internal fixation (ORIF) procedure Status: Acute Code(s): Z98.890 - OTHER SPECIFIED POSTPROCEDURAL STATES SNOMED Code(s): 374517390 (3) Periprosthetic fracture around internal prosthetic right hip joint Status: Acute Code(s): M97.01XA - PERIPROSTH FRACTURE AROUND INTERNAL PROSTH R HIP JT, INIT SNOMED Code(s): 458203159 Plan: 1. NPO after midnight. 2. Appreciate input from medicine. 3. Planning for revision and ORIF of the right hip on 05/03/2021 pending medical clearance and patient consent.
--- NOTE | 2021-05-02 15:10 | ED ---
Lower Extremity Injury HPI - General Chief Complaint: Extremity Injury, Lower Stated Complaint: Right Leg Time Seen by Provider: 05/02/21 14:32 Source: patient, RN notes reviewed Mode of arrival: wheelchair Limitations: physical limitation - History of Present Illness Initial Comments: This a 75-year-old male presents emergency Department from [facility]. Patient had left hip surgery 01/11. Patient reportedly has periprosthetic Patient was sent over for admission for surgery. Patient's been having increasing pain. Patient states it is very limited range of motion, difficult apply any weight on his right leg. - Related Data Home Medications Medication Instructions Recorded Confirmed Allopurinol [Zyloprim] 100 mg PO DAILY 02/28/21 02/28/21 Apixaban [Eliquis] 5 mg PO BID 02/28/21 02/28/21 Celecoxib [CeleBREX] 200 mg PO DAILY 02/28/21 02/28/21 Joint Health Supplement 1 tab PO DAILY 02/28/21 02/28/21 Simvastatin [Zocor] 20 mg PO HS 02/28/21 02/28/21 Previous Rx's Medication Instructions Recorded Famotidine [Pepcid] 20 mg PO DAILY tab 03/04/21 HYDROcodone/APAP 7.5-325MG [[place] 1 - 2 tab PO Q6H PRN #32 tab 03/04/21 7.5-325] Sennosides [Senokot] 2 tab PO DAILY PRN #60 tablet 03/04/21 Tamsulosin [Flomax] 0.4 mg PO DAILY #30 cap 03/04/21 Allergies Allergy/AdvReac Type Severity Reaction Status Date / Time No Known Allergies Allergy Verified 03/01/21 10:06 Review of Systems ROS Statement: Those systems with pertinent positive or pertinent negative responses have been documented in the HPI. ROS Other: All systems not noted in ROS Statement are negative. Past Medical History Past Medical History: Hyperlipidemia, Pulmonary Embolus (PE), Sleep Apnea/CPAP/BIPAP Additional Past Medical History / Comment(s): uses cpap, PEs 2014 History of Any Multi-Drug Resistant Organisms: None Reported Past Surgical History: No Surgical Hx Reported Past Anesthesia/Blood Transfusion Reactions: No Reported Reaction Past Psychological History: No Psychological Hx Reported Smoking Status: Former smoker Past Alcohol Use History: Occasional Past Drug Use History: None Reported - Past Family History Mother Family Medical History: No Reported History Father Family Medical History: Coronary Artery Disease (CAD) General Exam General appearance: alert, in no apparent distress Head exam: Present: atraumatic, normocephalic, normal inspection Neck exam: Present: normal inspection. Absent: tenderness, meningismus, lymphadenopathy Respiratory exam: Present: normal lung sounds bilaterally. Absent: respiratory distress, wheezes, rales, rhonchi, stridor Cardiovascular Exam: Present: regular rate, normal rhythm, normal heart sounds. Absent: systolic murmur, diastolic murmur, rubs, gallop, clicks Extremities exam: Present: other (Right hip tenderness, lungs range of motion) Course Vital Signs 05/02/21 14:50 Temperature 98.5 F Pulse Rate 88 Respiratory 20 Rate Blood Pressure 129/62 O2 Sat by Pulse 98 Oximetry Medical Decision Making - Medical Decision Making Patient will be admitted for surgical clearance, surgery to Dr. Chaidez Disposition Clinical Impression: Periprosthetic fracture around internal prosthetic right hip joint Disposition: ADMITTED IP TO THIS HOSP Referrals: Waldo Avery MD [Primary Care Provider] - 1-2 days
[2021-05-02] MEDS ORDERED: NALOXONE 0.4 MG/ML 1 ML VIAL IV PRN (15:11)
[2021-05-02] MEDS ORDERED: HYDROcodone/APAP 5-325MG 1 EACH TAB PO PRN (15:11)
--- NOTE | 2021-05-02 15:14 | XR ---
EXAMINATION TYPE: XR chest 1V DATE OF EXAM: 05/02/2021 COMPARISON: Chest x-ray March 04, 2021 HISTORY: Presurgical study. TECHNIQUE: Single frontal semiupright view of the chest is obtained. FINDINGS: There is chronic parenchymal change bilaterally without suspicious focal air space opacity , pleural effusion, or pneumothorax seen. The cardiac silhouette size remains within normal limits. The osseous structures are demineralized. Degenerative changes spine and both shoulders redemonstra gopi. IMPRESSION: Chronic changes without acute pulmonary process.
[2021-05-02] MEDS: HYDROmorphone 0.5 MG/0.5 ML SYRINGE IVP PRN ×2 (15:18→21:33)
[2021-05-02 15:24] LABS: Basophils # (A) 0.1 k/uL (0-0.2); Basophils % (A) 1 %; Eosinophils # (A) 0.2 k/uL (0-0.7); Eosinophils % (A) 3 %; HCT 43.5 % (39.0-53.0); HGB 14.2 gm/dL (13.0-17.5); Lymphocytes # (A) 1.6 k/uL (1.0-4.8); Lymphocytes % (A) 18 %; MCH 32.1 pg (25.0-35.0); MCHC 32.7 g/dL (31.0-37.0); MCV 98.2 fL (80.0-100.0); Mean Platelet Volume 8.3; Monocytes # (A) 0.6 k/uL (0-1.0); Monocytes % (A) 7 %; Neutrophils % (A) 70 %; Platelet Count 241 k/uL (150-450); RBC 4.43 m/uL (4.30-5.90); RDW 12.4 % (11.5-15.5); WBC 8.6 k/uL (3.8-10.6)
[2021-05-02 15:33] LABS: ALT 17 U/L (4-49); AST 33 U/L (17-59); African American GFR (CKD) >90 (>60 ml/min/1.73 sqM); Alkaline Phosphatase 120 U/L (38-126); Anion Gap 11 mmol/L; Blood Urea Nitrogen 16 mg/dL (9-20); Calcium 9.3 mg/dL (8.4-10.2); Carbon Dioxide 22 mmol/L (22-30); Chloride 103 mmol/L (98-107); Glucose 105 mg/dL (74-99); Non-African American GFR(CKD) 87 (>60 ml/min/1.73 sqM); Potassium 4.7 mmol/L (3.5-5.1); Sodium 136 mmol/L (137-145); Total Bilirubin 1.1 mg/dL (0.2-1.3); Total Protein 7.3 g/dL (6.3-8.2)
[2021-05-02 15:42] LABS: INR 1.2 (<1.2); Partial Thromboplastin Time 29.9 sec (22.0-30.0); Prothrombin Time 12.7 sec (9.0-12.0)
[2021-05-02] MEDS: ONDANSETRON 4 MG/2 ML VIAL IVP PRN (21:34)
[2021-05-02 22:25] LABS: Appearance,Urine Clear (Clear); Bilirubin,Urine Negative (Negative); Blood,Urine Negative (Negative); Color,Urine Yellow; Glucose,Urine (UA) Negative (Negative); Ketones,Urine 2+ (Negative); Leukocyte Esterase,Urine Negative (Negative); Nitrite,Urine Negative (Negative); Protein,Urine Trace (Negative); Specific Gravity,Urine 1.025 (1.001-1.035); Urobilinogen,Urine <2.0 mg/dL (<2.0)
[2021-05-03] MEDS ORDERED: HYDROcodone/APAP 7.5-325MG 1 EACH TAB PO PRN ×2 (10:15→14:06)
[2021-05-03] MEDS ORDERED: SENNOSIDES 8.6 MG TAB PO PRN (10:15)
--- NOTE | 2021-05-03 13:16 | P.CONS ---
History of Present Illness - Reason for Consult Consult date: 05/03/21 Medical management - History of Present Illness HISTORY OF PRESENT ILLNESS 75-year-old male patient of Dr. Avery with past medical history of pulmonary embolism in 2015 unknown cause on Eliquis, history of obstructive sleep apnea on CPAP, hyperlipidemia, history of basal cell cancer. Patient is status post right total hip arthroplasty 03/01/2001/10/2021. He subsequently had a fall following that and underwent open reduction internal fixation of the right hip on 03/03/2021. Patient states that he started physical therapy on Sunday felt like he overdid it. He denies having any recurrent falls. He was complaining of significant pain to the right lateral hip region and was seen by his orthopedic doctor yesterday and found to have fracture of the right femur and previous ORIF. Patient was admitted directly with plan for surgical intervention today. He denies having any chest pain or shortness of breath. EKG is a sinus rhythm with no acute ST changes. His last dose of eliquis was on 1/10 AM. Ovalles catheter is in place. Recommended the patient start vitamin D and obtaining bone density test as an outpatient. ROS Constitutional: Denies chills, Denies fever, Denies lethargy, Denies malaise, Denies poor appetite, Denies weakness, Denies weight loss Eyes: denies decreased vision, denies diplopia, denies discharge, denies pain Ears: deny: decreased hearing Ears, nose, mouth and throat: Denies dental pain, Denies headache, Denies nasal discharge, Denies nose pain Cardiovascular: Denies chest pain, Denies decreased exercise tolerance, Denies edema, Denies high blood pressure, Denies irregular heart beat, Denies palpitations, Denies paroxysmal nocturnal dyspnea, Denies rapid heart beat, Denies shortness of breath Respiratory: Denies congestion, Denies cough, Denies cough with sputum, Denies dyspnea, Denies home oxygen, Denies wheezing Gastrointestinal: Denies abdominal pain, Denies change in bowel habits, Denies coffee ground emesis, Denies early satiety, Denies excessive gas, Denies heartburn, Denies hematemesis, Denies hematochezia, Denies loss of appetite, Denies nausea, Denies vomiting Genitourinary: Denies dysuria, Denies flank pain, Denies kidney stones, Denies menorrhagia, Denies urgency, Denies urinary frequency Musculoskeletal: Endorses gait dysfunction, reports limitation of motion right hip, Denies morning stiffness, Denies muscle cramps. Reports pain in right hip Integumentary: Denies rash, Denies wounds, Denies brittle nails, Denies change in hair/nails, Denies darkening of skin Neurological: Denies balance difficulties, Denies change in speech, Denies double vision, Denies gait dysfunction, Denies loss of vision, Denies motor disturbance, Denies numbness, Denies paralysis, Denies paresthesias, Denies seizures Psychiatric: Denies anxiety, Denies depression Endocrine: Denies excessive sweating, Denies excessive thirst, Denies high blood sugars, Denies palpitations Hematologic/Lymphatic: Denies easy bruising, Denies lymphadenopathy Social history Patient is a non-smoker, Drinks alcohol occasionally denies any marijuana or any drug use. He lives with his . No use of oxygen or walker Family history Mom at the age of 86 had various medical reasons Father at the age of 84 from coronary artery disease Patient has 1 brother is living is a 79 years old has history of basal cell cancer One sister who is 76 doing well One sister passed from infection. At the age of 53 Patient has 3 daughters doing well PHYSICAL EXAMINATION Gen: This is a 75-year-old male. He is resting in bed and appears to be in no acute distress. Patient's is at bedside. HEENT: Head is atraumatic, normocephalic. Pupils equal, round. Sclerae is anicteric. NECK: Supple. No JVD. No lymphadenopathy. No thyromegaly. LUNGS: Clear to auscultation. No wheezes or rhonchi. No intercostal retractions. HEART: Regular rate and rhythm. No murmur. ABDOMEN: Soft. Bowel sounds are present. No masses. No tenderness. EXTREMITIES: No pedal edema. No calf tenderness. Tenderness to the right lateral hip region. NEUROLOGICAL: Patient is awake, alert and oriented x3. Cranial nerves 2 through 12 are grossly intact. ASSESSMENT AND PLAN 1. Periprosthetic fracture of the right femur with previous ORIF. Patient is cleared medically for surgical intervention which is scheduled for today. Continue current pain management, activity, DVT prophylaxis per orthopedics. Patient will be resumed on eliquis following surgery. Incentive spirometry to reduce incidence of atelectasis and hospital-acquired pneumonia. 2. History of recent right total hip arthroplasty 03/01 and open reduction internal fixation of the right hip on 03/03. Patient will be started on vitamin D and recommend bone density testing as an outpatient. 3. History of pulmonary embolism. Continue eliquis following surgical intervention and cleared by orthopedics. 4. Hyperlipidemia. Continue atorvastatin 10 mg at bedtime 5. Gastroesophageal reflux disease and GI prophylaxis. Continue Pepcid 20 mg daily. 6. Benign prostatic hypertrophy. Continue Flomax 0.4 mg daily. Patient currently has a Ovalles catheter. 7. Chronic gout. Continue allopurinol 100 mg daily. 8. COVID-19 testing negative. Patient has been hospitalized during a pandemic. Patient will be admitted to the hospital for a minimum of 2 night stay. DISCHARGE PLAN Subacute rehab at [facility]. Impression and plan of care have been directed as dictated by the signing physician. Twyla Nielson nurse practitioner acting as scribe for signing physician. Past Medical History Past Medical History: Hyperlipidemia, Pulmonary Embolus (PE), Sleep Apnea/CPAP/BIPAP Additional Past Medical History / Comment(s): uses cpap, PEs 2014 History of Any Multi-Drug Resistant Organisms: None Reported Past Surgical History: No Surgical Hx Reported, Orthopedic Surgery Additional Past Surgical History / Comment(s): rt hip ORIF 2020 Past Anesthesia/Blood Transfusion Reactions: No Reported Reaction Past Psychological History: No Psychological Hx Reported Smoking Status: Former smoker Past Alcohol Use History: Occasional Past Drug Use History: None Reported - Past Family History Mother Family Medical History: No Reported History Father Family Medical History: Coronary Artery Disease (CAD) Medications and Allergies Home Medications Medication Instructions Recorded Confirmed Type Allopurinol [Zyloprim] 100 mg PO DAILY 02/28/21 05/02/21 History Apixaban [Eliquis] 5 mg PO BID 02/28/21 05/02/21 History Celecoxib [CeleBREX] 200 mg PO DAILY 02/28/21 05/02/21 History Joint Health Supplement 1 tab PO DAILY 02/28/21 05/02/21 History Simvastatin [Zocor] 20 mg PO HS 02/28/21 05/02/21 History Famotidine [Pepcid] 20 mg PO DAILY tab 03/04/21 05/02/21 Rx HYDROcodone/APAP 7.5-325MG [Broseley 1 - 2 tab PO Q6H PRN #32 tab 03/04/21 05/02/21 Rx 7.5-325] Sennosides [Senokot] 2 tab PO DAILY PRN #60 tablet 03/04/21 05/02/21 Rx Tamsulosin [Flomax] 0.4 mg PO DAILY #30 cap 03/04/21 05/02/21 Rx Allergies Allergy/AdvReac Type Severity Reaction Status Date / Time No Known Allergies Allergy Verified 05/02/21 15:34 Physical Exam Vitals: Vital Signs Temp Pulse Pulse Resp BP BP Pulse Ox 05/03/21 06:06 97.8 F 82 16 147/60 99 05/02/21 22:55 98.1 F 92 18 170/86 100 05/02/21 22:27 64 16 95 05/02/21 19:43 86 16 134/83 97 05/02/21 18:30 86 29 H 141/78 96 05/02/21 17:00 91 18 130/73 95 05/02/21 15:40 90 18 136/76 95 05/02/21 14:50 98.5 F 88 20 129/62 98 Intake and Output 05/02/21 05/03/21 05/03/21 22:59 06:59 14:59 Output Total 425 400 Balance -425 -400 Output: Urine 425 400 Uretheral (Ovalles) 425 Other: Weight 92.533 kg Results CBC & Chem 7: 05/02/21 15:11 05/02/21 15:11 Labs: Abnormal Lab Results - Last 24 Hours (Table) 05/02/21 05/02/21 05/02/21 Range/Units 15:11 15:11 21:40 PT 12.7 H (9.0-12.0) sec INR 1.2 H (<1.2) Sodium 136 L (137-145) mmol/L Glucose 105 H (74-99) mg/dL Urine Protein Trace H (Negative) Urine Ketones 2+ H (Negative)
[2021-05-03] MEDS: SODIUM CHLORIDE 0.9% 1,000 ML IV SCH ×2 (13:22→18:45)
[2021-05-03] MEDS ORDERED: IV FLUID CONTINUATION 700 ML IV ONE (13:55)
[2021-05-03] MEDS ORDERED: HYDROmorphone 0.2 MG/1 ML SYRINGE IVP PRN (14:03)
[2021-05-03] MEDS ORDERED: NALOXONE 0.4 MG/ML 1 ML VIAL IV PRN (14:03)
[2021-05-03] MEDS ORDERED: ONDANSETRON 4 MG/2 ML VIAL IVP PRN (14:03)
[2021-05-03] MEDS ORDERED: MAGNESIUM HYDROXIDE 2,400 MG/10 ML CUP PO PRN (14:03)
[2021-05-03] MEDS ORDERED: HYDROmorphone 0.5 MG/0.5 ML SYRINGE IVP PRN ×2 (14:03)
[2021-05-03] MEDS ORDERED: DEXAMETHASONE SOD PHOSPHATE 4 MG/ML 1 ML VIAL IVP ONE (14:25)
[2021-05-03] MEDS ORDERED: ONDANSETRON 4 MG/2 ML VIAL IVP ONE (14:25)
[2021-05-03] MEDS ORDERED: MIDAZOLAM 2 MG/2 ML VIAL ONE (14:30)
[2021-05-03] MEDS ORDERED: TRANEXAMIC ACID 1,000 MG/10 ML VIAL ONE (14:30)
[2021-05-03] MEDS ORDERED: LIDOCAINE 1% INJ 10MG/ML (20 ML MDV) ONE (14:30)
[2021-05-03] MEDS ORDERED: NEOSTIGMINE 1 MG/ML 10 ML VIAL ONE (14:30)
[2021-05-03] MEDS ORDERED: ROCURONIUM 10 MG/ML (5 ML VIAL) IV ONE (14:30)
[2021-05-03] MEDS ORDERED: SODIUM CHLORIDE 0.9% 100 ML BAG ONE (14:30)
[2021-05-03] MEDS ORDERED: GLYCOPYRROLATE 0.2 MG/ML 2 ML VIAL ONE (14:30)
[2021-05-03] MEDS ORDERED: fentaNYL (PF) 50 MCG/ML 2 ML AMP ONE (14:30)
[2021-05-03] MEDS ORDERED: PHENYLEPHRINE-0.9% NACL SYG 1,000 MCG/10 ML SYRINGE ONE (14:30)
[2021-05-03] MEDS ORDERED: diphenhydrAMINE 50 MG/ML 1 ML VIAL ONE (14:30)
[2021-05-03] MEDS ORDERED: PROPOFOL 10 MG/ML 20 ML VIAL IV ONE (14:30)
[2021-05-03] MEDS ORDERED: SUCCINYLCHOLINE CHLORIDE 100 MG/5 ML SYR IV ONE (14:30)
[2021-05-03] MEDS ORDERED: ceFAZolin 3,000 MG in SODIUM CHLORIDE 0.9% IRRIGATIO 3,000 ML IRRIGATION ONE (15:13)
[2021-05-03] MEDS ORDERED: LACTATED RINGERS 1,000 ML IV ONE (15:36)
--- NOTE | 2021-05-03 17:07 | P.OP ---
Date of Procedure: 05/03/21 Preoperative Diagnosis: Periprosthetic femur fracture right total hip arthroplasty Postoperative Diagnosis: Periprosthetic right femur fracture right total hip arthroplasty Procedure(s) Performed: Open reduction internal fixation periprosthetic femur fracture of the right femur Implants: [employer] cable ready accord plate, [employer] accord cables 8 Anesthesia: GETA Surgeon: Jorden Chaidez Leadership Intern #1: Loree Coronel Estimated Blood Loss (ml): 1,000 Pathology: other (Cultures 2.) Condition: stable Disposition: PACU Indications for Procedure: This is a gentleman that March 02 Had a Right Total Arthroplasty Performed. He Slipped That Day and Sustained a Periprosthetic Fracture of His Right Femur. He Is Treated with Open Reduction Fixation on 03/03/2021. He Was Seen Postoperatively and Was Doing Well and Then Presented to the office on Sunday with increased pain following physical therapy. X-rays demonstrated a re- fracture of his periprosthetic femur fracture. Discussing the surgical nonsurgical treatment options at length I've recommended her open reduction and she'll fixation of the fracture as well as a possible revision total hip arthroplasty. Informed consent was obtained. Operative Findings: The operative findings are consistent with a severely comminuted periprosthetic right femur fracture. Description of Procedure: Patient was seen and examined in the preoperative area, and upper site was marked with a skin marker. Patient was then brought to the operating room and given preoperative intravenous antibiotics as well as IV TXA. A general anesthetic was administered by the anesthesia department. She was placed in left lateral decubitus position with the bony prominences well-padded and held with a Montral hip positioner. A universal timeout was then performed which confirmed the patient's name, surgical site, ALLERGIES, and consent. A lateral incision was then performed on the lateral aspect of the right femur utilizing his prior incision. Was carried down to the fascia which was then split in line with the incision. The muscle fibers were then divided and they femur fracture was exposed. Found to be severely comminuted and the prior cables were then removed. The large cable plate was then placed a lateral aspect of his femur and held with multiple cables to reduce the fracture. After the cables were placed, hip was taken through range of motion and the fracture was stable. Was then directed to the hip. Hip was attempted to be dislocated but was unable to do so secondary to the soft tissues being so tight. At that point the decision to not revise the femur was reached. Decision making was based on the fact that was possible the fracture of the femur more while trying to remove dislocate the femur and then possibly reducing the new implant. The femoral implant that was in his femur at this point was still stable. The hip area was then irrigated and closed with 0 Vicryl followed by #2 strata fix followed by 3-0 Vicryl and luiz for the skin. Gen. dressings were applied and the patient transferred to her room stable condition. Asst. Loree Coronel's required due the complexity surgery the need for skilled primary teaching assistant.
[2021-05-03] MEDS: TRANEXAMIC ACID 1,000 MG in SODIUM CHLORIDE 0.9% 100 ML IVPB SCH (18:45)
[2021-05-03] MEDS ORDERED: APIXABAN 5 MG TAB PO SCH (21:00)
[2021-05-03] MEDS ORDERED: ATORVASTATIN 20 MG TAB PO SCH (21:00)
[2021-05-03] MEDS: HYDROcodone/APAP 7.5-325MG 1 EACH TAB PO PRN (21:53)
[2021-05-03] MEDS: ATORVASTATIN 10 MG TAB PO SCH (21:54)
[2021-05-03] MEDS: SENNOSIDES-DOCUSATE SODIUM 1 EACH TAB PO SCH (21:54)
--- NOTE | 2021-05-03 22:28 | XR ---
EXAMINATION TYPE: XR Hip Limited RT DATE OF EXAM: 05/03/2021 COMPARISON: 03/03/2021 HISTORY: 75 years Male. STUDY INDICATION GIVEN: Status post hip surgery, assess surgical alignment . TECHNIQUE: Single frontal radiographs of the right hip joint IMPRESSION: Postsurgical changes in the proximal right lower extremity with subcutaneous air. Skin luiz are no gopi. There is a fracture line in the femoral shaft at the level of the inferior intramedullary douglas with a screw going through it. In the interval a lateral femoral plate has been placed. Osteopenia is again seen. Right hip joint alignment is not significantly changed compared to prior.
[2021-05-04] MEDS: HYDROmorphone 0.5 MG/0.5 ML SYRINGE IVP PRN ×2 (03:32→09:01)
[2021-05-04] MEDS: SODIUM CHLORIDE 0.9% 1,000 ML IV SCH ×4 (03:37→21:18)
[2021-05-04 07:07] LABS: Basophils % (A) 0 %; Eosinophils % (A) 0 %; HCT 34.5 % (39.0-53.0); HGB 11.3 gm/dL (13.0-17.5); Hypochromasia Slight; Lymphocytes # (A) 0.5 k/uL (1.0-4.8); Lymphocytes % (A) 4 %; MCH 32.8 pg (25.0-35.0); MCHC 32.7 g/dL (31.0-37.0); MCV 100.3 fL (80.0-100.0); Mean Platelet Volume 8.7; Monocytes # (A) 0.7 k/uL (0-1.0); Monocytes % (A) 6 %; Neutrophils # (A) 11.6 k/uL (1.3-7.7); Neutrophils % (A) 90 %; Platelet Count 253 k/uL (150-450); RBC 3.44 m/uL (4.30-5.90); RDW 12.4 % (11.5-15.5)
[2021-05-04] MEDS: ONDANSETRON 4 MG/2 ML VIAL IVP PRN (09:00)
[2021-05-04] MEDS: TAMSULOSIN 0.4 MG CAP.ER.24H PO SCH (09:00)
[2021-05-04] MEDS: APIXABAN 5 MG TAB PO SCH ×2 (09:01→21:18)
[2021-05-04] MEDS: CHOLECALCIFEROL 25 MCG (1000 IU) TABLET PO SCH (09:01)
[2021-05-04] MEDS: FAMOTIDINE 20 MG TAB PO SCH (09:01)
[2021-05-04] MEDS: allopurinoL 100 MG TAB PO SCH (09:01)
[2021-05-04] MEDS: FUROSEMIDE 20 MG TAB PO SCH (13:32)
--- NOTE | 2021-05-04 13:40 | P.PN ---
Subjective Progress Note Date: 05/04/21 Principal diagnosis: Status post ORIF right femur This is a 75 year-old male post ORIF right femur This is post-op day 1. The patient was evaluated in the recliner at the bedside. The patient denies nausea, vomiting, abdominal pain, chest pain, or shortness of breath this afternoon. He did have some nausea and gas this morning but he feels better now. He states her pain is controlled at this time. The patient has been up with physical therapy yet this morning. Objective - Vital Signs Vital signs: Vital Signs Temp 97.5 F L 05/04/21 12:09 Pulse 91 05/04/21 12:09 Resp 20 05/04/21 12:09 BP 132/74 05/04/21 12:09 Pulse Ox 98 05/04/21 12:09 Intake & Output 05/03/21 05/04/21 05/04/21 18:59 06:59 18:59 Intake Total 1551 600 Output Total 1725 600 Balance -174 0 Intake: IV 1551 Intake, IV Titration 600 Amount Sodium Chloride 0.9% 1, 600 000 ml @ 75 mls/hr IV . [id number] [facility] Rx#:[id number] Output: Urine 725 600 Estimated Blood Loss 1000 Other: Voiding Method Indwelling Catheter Indwelling Catheter Indwelling Catheter - Exam The patient does not appear in acute distress. Alert and orientated x3. Dressing is clean dry and intact. Incision appears fine with no erythema or active drainage. Calf is soft and nontender. Good foot and ankle motion without difficulty. Sensation and circulatory status is intact. - Labs CBC & Chem 7: 05/04/21 06:33 05/02/21 15:11 Labs: Abnormal Lab Results - Last 24 Hours (Table) 05/04/21 Range/Units 06:33 WBC 13.0 H (3.8-10.6) k/uL RBC 3.44 L (4.30-5.90) m/uL Hgb 11.3 L (13.0-17.5) gm/dL Hct 34.5 L (39.0-53.0) % MCV 100.3 H (80.0-100.0) fL Neutrophils # 11.6 H (1.3-7.7) k/uL Lymphocytes # 0.5 L (1.0-4.8) k/uL Microbiology - Last 24 Hours (Table) 05/03/21 15:06 Gram Stain - Preliminary Leg - Right Wound Culture - Preliminary 05/03/21 15:06 Gram Stain - Preliminary Hip - Right Wound Culture - Preliminary 05/03/21 15:06 Anaerobic Culture - Preliminary Hip - Right 05/03/21 15:06 Anaerobic Culture - Preliminary Leg - Right Assessment and Plan (1) Periprosthetic fracture around internal prosthetic right hip joint Current Visit: Yes Status: Acute Code(s): M97.01XA - PERIPROSTH FRACTURE AROUND INTERNAL PROSTH R HIP JT, INIT SNOMED Code(s): 761827241 (2) History of open reduction and internal fixation (ORIF) procedure Current Visit: No Status: Acute Code(s): Z98.890 - OTHER SPECIFIED POSTPROCEDURAL STATES SNOMED Code(s): 591877429 Plan: 1. Continue pain control 2. Anticoagulation with Eliquis 3. Continue physical therapy and ambulation 4. Non-weightbearing right lower extremity 5. Anticipate discharge to rehab in 1-2 days.
--- NOTE | 2021-05-04 14:29 | P.PN ---
Subjective Progress Note Date: 05/04/21 HISTORY OF PRESENT ILLNESS 75-year-old male patient of Dr. Avery with past medical history of pulmonary em bolism in 2015 unknown cause on Eliquis, history of obstructive sleep apnea on CPAP, hyperlipidemia, history of basal cell cancer. Patient is status post right total hip arthroplasty 03/01/2001/10/2021. He subsequently had a fall following that and underwent open reduction internal fixation of the right hip on 03/03/2021. Patient states that he started physical therapy on Sunday felt like he overdid it. He denies having any recurrent falls. He was complaining of significant pain to the right lateral hip region and was seen by his orthopedic doctor yesterday and found to have fracture of the right femur and previous ORIF. Patient was admitted directly with plan for surgical intervention today. He denies having any chest pain or shortness of breath. EKG is a sinus rhythm with no acute ST changes. His last dose of eliquis was on 1/10 AM. Ovalles catheter is in place. Recommended the patient start vitamin D and obtaining bone density test as an outpatient. 05/04: Patient is status post open reduction internal fixation periprosthetic femur fracture of the right femur, 05/03.Patient is nonweightbearing on the left side. He states he had horrible heartburn during the night and vomited once. He is on Pepcid. He has been resumed on eliquis. Positive lower extremity edema and on Lasix at noon daily. Vital signs are stable, afebrile. WBC 13, hemoglobin 11.3, platelet count 253. Discharge plan is for [facility]. ROS Constitutional: Denies chills, Denies fever, Denies lethargy, Denies malaise, Denies poor appetite, Denies weakness, Denies weight loss Eyes: denies decreased vision, denies diplopia, denies discharge, denies pain Ears: deny: decreased hearing Ears, nose, mouth and throat: Denies dental pain, Denies headache, Denies nasal discharge, Denies nose pain Cardiovascular: Denies chest pain, Denies decreased exercise tolerance, Denies edema, Denies high blood pressure, Denies irregular heart beat, Denies palpitations, Denies paroxysmal nocturnal dyspnea, Denies rapid heart beat, Denies shortness of breath Respiratory: Denies congestion, Denies cough, Denies cough with sputum, Denies dyspnea, Denies home oxygen, Denies wheezing Gastrointestinal: Denies abdominal pain, Denies change in bowel habits, Denies coffee ground emesis, Denies early satiety, Denies excessive gas, Denies heartburn, Denies hematemesis, Denies hematochezia, Denies loss of appetite, Denies nausea, Denies vomiting Genitourinary: Denies dysuria, Denies flank pain, Denies kidney stones, Denies menorrhagia, Denies urgency, Denies urinary frequency Musculoskeletal: Endorses gait dysfunction, reports limitation of motion right hip, Denies morning stiffness, Denies muscle cramps. Reports discomfort in right hip Integumentary: Denies rash, Denies wounds Neurological: Denies balance difficulties, Denies change in speech, Denies double vision, Denies gait dysfunction, Denies loss of vision, Denies motor disturbance, Denies numbness, Denies paralysis, Denies paresthesias, Denies seizures Psychiatric: Denies anxiety, Denies depression Endocrine: Denies excessive sweating, Denies excessive thirst, Denies high blood sugars, Denies palpitations Hematologic/Lymphatic: Denies easy bruising, Denies lymphadenopathy PHYSICAL EXAMINATION Gen: This is a 75-year-old male. He is resting in bed and appears to be in no acute distress. Patient's is at bedside. HEENT: Head is atraumatic, normocephalic. Pupils equal, round. Sclerae is anicteric. NECK: Supple. No JVD. No lymphadenopathy. No thyromegaly. LUNGS: Clear to auscultation. No wheezes or rhonchi. No intercostal r etractions. HEART: Regular rate and rhythm. No murmur. ABDOMEN: Soft. Bowel sounds are present. No masses. No tenderness. EXTREMITIES: No pedal edema. No calf tenderness. Tenderness to the right l ateral hip region. NEUROLOGICAL: Patient is awake, alert and oriented x3. Cranial nerves 2 through 12 are grossly intact. ASSESSMENT AND PLAN 1. Periprosthetic fracture of the right femur with previous ORIF. Patient is status post open reduction internal fixation. Prosthetic aortic fracture on the right femur 05/03. Continue current pain management, activity, DVT prophylaxis with eliquis. Patient will be resumed on eliquis following surgery. Incentive spirometry to reduce incidence of atelectasis and hospital-acquired pneumonia. 2. History of recent right total hip arthroplasty 03/01 and open reduction internal fixation of the right hip on 03/03. Patient will be started on vitamin D and recommend bone density testing as an outpatient. 3. History of pulmonary embolism. Patient resumed on eliquis. 4. Hyperlipidemia. Continue atorvastatin 10 mg at bedtime 5. Gastroesophageal reflux disease and GI prophylaxis. Continue Pepcid 20 mg daily. 6. Benign prostatic hypertrophy. Continue Flomax 0.4 mg daily. Patient currently has a Ovalles catheter. 7. Chronic gout. Continue allopurinol 100 mg daily. 8. COVID-19 testing negative. Patient has been hospitalized during a pandemic. DISCHARGE PLAN Subacute rehab at [facility] . Impression and plan of care have been directed as dictated by the signing physician. Twyla Nielson nurse practitioner acting as scribe for signing physician. Objective - Vital Signs Vital signs: Vital Signs Temp 97.8 F 05/04/21 03:39 Pulse 99 05/04/21 03:39 Resp 18 05/04/21 03:39 BP 116/73 05/04/21 03:39 Pulse Ox 95 05/04/21 03:39 Intake & Output 05/03/21 05/04/21 05/04/21 18:59 06:59 18:59 Intake Total 1551 600 Output Total 1725 600 Balance -174 0 Intake: IV 1551 Intake, IV Titration 600 Amount Sodium Chloride 0.9% 1, 600 000 ml @ 75 mls/hr IV . [id number] [facility] Rx#:[id number] Output: Urine 725 600 Estimated Blood Loss 1000 Other: Voiding Method Indwelling Catheter Indwelling Catheter - Labs CBC & Chem 7: 05/04/21 06:33 05/02/21 15:11 Labs: Abnormal Lab Results - Last 24 Hours (Table) 05/04/21 Range/Units 06:33 WBC 13.0 H (3.8-10.6) k/uL RBC 3.44 L (4.30-5.90) m/uL Hgb 11.3 L (13.0-17.5) gm/dL Hct 34.5 L (39.0-53.0) % MCV 100.3 H (80.0-100.0) fL Neutrophils # 11.6 H (1.3-7.7) k/uL Lymphocytes # 0.5 L (1.0-4.8) k/uL Microbiology - Last 24 Hours (Table) 05/03/21 15:06 Gram Stain - Preliminary Leg - Right Wound Culture - Preliminary 05/03/21 15:06 Gram Stain - Preliminary Hip - Right Wound Culture - Preliminary 05/03/21 15:06 Anaerobic Culture - Preliminary Hip - Right 05/03/21 15:06 Anaerobic Culture - Preliminary Leg - Right
[2021-05-04] MEDS: HYDROcodone/APAP 7.5-325MG 1 EACH TAB PO PRN (17:36)
[2021-05-04] MEDS: ATORVASTATIN 10 MG TAB PO SCH (21:18)
[2021-05-04] MEDS: SENNOSIDES-DOCUSATE SODIUM 1 EACH TAB PO SCH (21:18)
[2021-05-05] MEDS: SODIUM CHLORIDE 0.9% 1,000 ML IV SCH ×2 (04:26→10:31)
[2021-05-05 04:32] VITALS: RESP 16
[2021-05-05] MEDS: FAMOTIDINE 20 MG TAB PO SCH (10:01)
[2021-05-05] MEDS: allopurinoL 100 MG TAB PO SCH (10:01)
[2021-05-05] MEDS: APIXABAN 5 MG TAB PO SCH (10:01)
[2021-05-05] MEDS: CHOLECALCIFEROL 25 MCG (1000 IU) TABLET PO SCH (10:01)
[2021-05-05] MEDS: TAMSULOSIN 0.4 MG CAP.ER.24H PO SCH (10:03)
--- NOTE | 2021-05-05 10:06 | P.PN ---
Subjective Progress Note Date: 05/05/21 This is a 75-year-old male who is status post ORIF periprosthetic right femur fracture. This is postoperative day #2 and patient is seen and evaluated at bedside today. Patient states that his pain is well controlled and he has been able to sit in a chair. Patient states that his only complaint is heart burn. Objective - Vital Signs Vital signs: Vital Signs Temp 98.6 F 05/05/21 04:31 Pulse 92 05/05/21 04:31 Resp 16 05/05/21 04:31 BP 108/65 05/05/21 04:31 Pulse Ox 95 05/05/21 04:31 Intake & Output 05/04/21 05/05/21 05/05/21 18:59 06:59 18:59 Intake Total 50 600 Output Total 900 250 Balance -850 350 Intake: Intake, IV Titration 50 600 Amount Sodium Chloride 0.9% 1, 600 000 ml @ 75 mls/hr IV . [id number] [facility] Rx#:[id number] ceFAZolin 2 gm In Sodium 50 Chloride 0.9% 50 ml @ 100 mls/hr IVPB Q8H [facility] Rx#: [id number] Output: Urine 900 250 Other: Voiding Method Indwelling Catheter Indwelling Catheter # Bowel Movements 1 - Exam Vital signs are stable. Patient is in no acute distress and is alert and oriented 3. Calf is soft and nontender to palpation. Dressing is clean, dry, and intact. Patient has full foot and ankle motion without pain or difficulty. Sensation intact. Neurovascular status and circulatory status are intact. - Labs CBC & Chem 7: 05/04/21 06:33 05/02/21 15:11 Labs: Microbiology - Last 24 Hours (Table) 05/03/21 15:06 Gram Stain - Preliminary Hip - Right Wound Culture - Preliminary 05/03/21 15:06 Gram Stain - Preliminary Leg - Right Wound Culture - Preliminary Assessment and Plan (1) History of total right hip arthroplasty Current Visit: No Status: Acute Code(s): Z96.641 - PRESENCE OF RIGHT ARTIFICIAL HIP JOINT SNOMED Code(s): 695327273330 (2) History of open reduction and internal fixation (ORIF) procedure Current Visit: No Status: Acute Code(s): Z98.890 - OTHER SPECIFIED POSTPROCEDURAL STATES SNOMED Code(s): 560162338 (3) Periprosthetic fracture around internal prosthetic right hip joint Current Visit: Yes Status: Acute Code(s): M97.01XA - PERIPROSTH FRACTURE AROUND INTERNAL PROSTH R HIP JT, INIT SNOMED Code(s): 100756811 Plan: 1. Strictly nonweightbearing to the right lower extremity. 2. Continue pain control and routine postoperative care. 3. Eliquis for anticoagulation. 4. Appreciate input from medicine. 5. Planning for discharge to ECF later today.
[2021-05-05] MEDS: ONDANSETRON 4 MG/2 ML VIAL IVP PRN (10:31)
[2021-05-05] MEDS: HYDROcodone/APAP 7.5-325MG 1 EACH TAB PO PRN (12:07)
[2021-05-05] MEDS: FUROSEMIDE 20 MG TAB PO SCH (12:27)
[2021-05-05 12:40] VITALS: BP 140/68; PULSE 88; TEMP 97.7
--- NOTE | 2021-05-06 15:05 | P.PN ---
Subjective Progress Note Date: 05/05/21 HISTORY OF PRESENT ILLNESS 75-year-old male patient of Dr. Avery with past medical history of pulmonary em bolism in 2015 unknown cause on Eliquis, history of obstructive sleep apnea on CPAP, hyperlipidemia, history of basal cell cancer. Patient is status post right total hip arthroplasty 03/01/2001/10/2021. He subsequently had a fall following that and underwent open reduction internal fixation of the right hip on 03/03/2021. Patient states that he started physical therapy on Sunday felt like he overdid it. He denies having any recurrent falls. He was complaining of significant pain to the right lateral hip region and was seen by his orthopedic doctor yesterday and found to have fracture of the right femur and previous ORIF. Patient was admitted directly with plan for surgical intervention today. He denies having any chest pain or shortness of breath. EKG is a sinus rhythm with no acute ST changes. His last dose of eliquis was on 1/10 AM. Ovalles catheter is in place. Recommended the patient start vitamin D and obtaining bone density test as an outpatient. 05/04: Patient is status post open reduction internal fixation periprosthetic femur fracture of the right femur, 05/03.Patient is nonweightbearing on the left side. He states he had horrible heartburn during the night and vomited once. He is on Pepcid. He has been resumed on eliquis. Positive lower extremity edema and on Lasix at noon daily. Vital signs are stable, afebrile. WBC 13, hemoglobin 11.3, platelet count 253. Discharge plan is for [facility]. 05/05: Patient is being prepared for discharge to [facility] for subacute rehab. Regarding tremors, we'll start the patient on Artane. He continues to have some edema in the right leg. Medication reconciliation has been reviewed. ROS Constitutional: Denies chills, Denies fever, Denies lethargy, Denies malaise, Denies poor appetite, Denies weakness, Denies weight loss Eyes: denies decreased vision, denies diplopia, denies discharge, denies pain Ears: deny: decreased hearing Ears, nose, mouth and throat: Denies dental pain, Denies headache, Denies nasal discharge, Denies nose pain Cardiovascular: Denies chest pain, Denies decreased exercise tolerance, Denies edema, Denies high blood pressure, Denies irregular heart beat, Denies palpitations, Denies paroxysmal nocturnal dyspnea, Denies rapid heart beat, Denies shortness of breath Respiratory: Denies congestion, Denies cough, Denies cough with sputum, Denies dyspnea, Denies home oxygen, Denies wheezing Gastrointestinal: Denies abdominal pain, Denies change in bowel habits, Denies coffee ground emesis, Denies early satiety, Denies excessive gas, Denies heartburn, Denies hematemesis, Denies hematochezia, Denies loss of appetite, Denies nausea, Denies vomiting Genitourinary: Denies dysuria, Denies flank pain, Denies kidney stones, Denies menorrhagia, Denies urgency, Denies urinary frequency Musculoskeletal: Endorses gait dysfunction, reports limitation of motion right hip, Denies morning stiffness, Denies muscle cramps. Reports discomfort in right hip Integumentary: Denies rash, Denies wounds Neurological: Denies balance difficulties, Denies change in speech, Denies double vision, Denies gait dysfunction, Denies loss of vision, Denies motor disturbance, Denies numbness, Denies paralysis, Denies paresthesias, Denies seizures Psychiatric: Denies anxiety, Denies depression Endocrine: Denies excessive sweating, Denies excessive thirst, Denies high blood sugars, Denies palpitations Hematologic/Lymphatic: Denies easy bruising, Denies lymphadenopathy PHYSICAL EXAMINATION Gen: This is a 75-year-old male. He is resting in bed and appears to be in no acute distress. HEENT: Head is atraumatic, normocephalic. Pupils equal, round. Sclerae is anicteric. NECK: Supple. No JVD. No lymphadenopathy. No thyromegaly. LUNGS: Clear to auscultation. No wheezes or rhonchi. No intercostal retractions. HEART: Regular rate and rhythm. No murmur. ABDOMEN: Soft. Bowel sounds are present. No masses. No tenderness. EXTREMITIES: No pedal edema. No calf tenderness. Tenderness to the right lateral hip region. NEUROLOGICAL: Patient is awake, alert and oriented x3. Cranial nerves 2 through 12 are grossly intact. ASSESSMENT AND PLAN 1. Periprosthetic fracture of the right femur with previous ORIF. Patient is status post open reduction internal fixation. Prosthetic aortic fracture on the right femur 05/03. Continue current pain management, activity, DVT prophylaxis with eliquis. Patient will be resumed on eliquis following surgery. Incentive spirometry to reduce incidence of atelectasis and hospital-acquired pneumonia. 2. History of recent right total hip arthroplasty 03/01 and open reduction internal fixation of the right hip on 03/03. Patient will be started on vitamin D and recommend bone density testing as an outpatient. 3. History of pulmonary embolism. Patient resumed on eliquis. 4. Hyperlipidemia. Continue atorvastatin 10 mg at bedtime 5. Gastroesophageal reflux disease and GI prophylaxis. Continue Pepcid 20 mg daily. 6. Benign prostatic hypertrophy. Continue Flomax 0.4 mg daily. Patient currently has a Ovalles catheter. 7. Chronic gout. Continue allopurinol 100 mg daily. 8. COVID-19 testing negative. Patient has been hospitalized during a pandemic. DISCHARGE PLAN Subacute rehab at [facility] Impression and plan of care have been directed as dictated by the signing physician. Twyla Nielson nurse practitioner acting as scribe for signing physician. Objective - Vital Signs Vital signs: Vital Signs Temp 98.6 F 05/05/21 04:31 Pulse 92 05/05/21 04:31 Resp 16 05/05/21 04:31 BP 108/65 05/05/21 04:31 Pulse Ox 95 05/05/21 04:31 Intake & Output 05/04/21 05/05/21 05/05/21 18:59 06:59 18:59 Intake Total 50 600 Output Total 900 250 Balance -850 350 Intake: Intake, IV Titration 50 600 Amount Sodium Chloride 0.9% 1, 600 000 ml @ 75 mls/hr IV . [id number] [facility] Rx#:[id number] ceFAZolin 2 gm In Sodium 50 Chloride 0.9% 50 ml @ 100 mls/hr IVPB Q8H [facility] Rx#: [id number] Output: Urine 900 250 Other: Voiding Method Indwelling Catheter Indwelling Catheter # Bowel Movements 1 - Labs CBC & Chem 7: 05/04/21 06:33 05/02/21 15:11 Labs: Microbiology - Last 24 Hours (Table) 05/03/21 15:06 Gram Stain - Preliminary Hip - Right Wound Culture - Preliminary 05/03/21 15:06 Gram Stain - Preliminary Leg - Right Wound Culture - Preliminary
== END 2021-05-05 12:54 | DRG 482 ==
LOC: OR 14:27 → 4SSUR 15:12 → 5NMEDONC 21:16
PROVIDERS: ADMIT Orthopaedic Surgery; ATTEND Orthopaedic Surgery
PROC: 0QS604Z Reposition Right Upper Femur with Internal Fixation Device, Open Approach (ICD-10-PCS; principal; 2021-05-03 07:30)
DX: M97.01XA Periprosthetic fracture around internal prosthetic right hip joint, initial encounter (principal); E78.5 Hyperlipidemia, unspecified; G47.33 Obstructive sleep apnea (adult) (pediatric); N40.0 Benign prostatic hyperplasia without lower urinary tract symptoms; M1A.9XX0 Chronic gout, unspecified, without tophus (tophi); Z20.822 Contact with and (suspected) exposure to COVID-19; Z82.49 Family history of ischemic heart disease and other diseases of the circulatory system; Z79.01 Long term (current) use of anticoagulants; Z79.1 Long term (current) use of non-steroidal anti-inflammatories (NSAID); Z79.899 Other long term (current) drug therapy; Z86.711 Personal history of pulmonary embolism; Z87.891 Personal history of nicotine dependence; Z96.642 Presence of left artificial hip joint
CPT/HCPCS: 71045; 73501; 80053; 81003; 85025; 85610; 85730; 86850; 86900; 86901; 87070; 87075; 87205; 87635; 93005; 99285